=== PATIENT | female | born 1950 | race African-American/Black ===

== ENCOUNTER 2021-01-24 22:40 | Observation (INO) | payer MEDICARE, OTHER ==
[~2021-01-24] VITALS: Ht 162.6 cm; Wt 58.8 kg
[~2021-01-24 22:40] MED LIST: ANAS1TAB47 PO; ASPI81TA50 PO; EZET10TA20 PO; FELO10TA4 PO; INDA1.25 PO; LORA0.5T PO; OXYC1TAB15 PO; POTA20TA4 PO; RIVA20TA2 PO
[2021-01-25 02:15] VITALS: BP 132/67
--- NOTE | 2021-01-25 02:30 | NUR ---
Pt was a DA from [place], admitted with LE weakness, no current c/o pain. Pt is A/Ox4, but has a severe aphasia r/t a prior CVA May of 2020. Pt is up with standby assist, transferred with her own walking stick. BRADEN/SB on telemetry, RA, other VS stable and tolerating well. NIH was performed at admission, pt scored a 3. H/P and med rec completed, bed in low/locked position, call light within reach. Will continue to monitor pt for status changes.
[2021-01-25] MEDS ORDERED: FERR325T14 PO (03:21)
[2021-01-25] MEDS ORDERED: ATOR10TA60 PO (03:22)
[2021-01-25] MEDS ORDERED: ESCITALOPRAM OX10 MG PO (03:23)
[2021-01-25] MEDS ORDERED: 0.9 % SODIUM CHLORIDE 10 ML DISP.SYRIN. IV PRN ×2 (04:45→13:45)
[2021-01-25 07:09] VITALS: BP 157/74
[2021-01-25 07:46] LABS: BASO % 0 % (0-3); EOS # 0.2 x10^3/uL (0.0-0.7); EOS % 4 % (0-3); HEMATOCRIT 35.2 % (36.0-47.0); HEMOGLOBIN 11.5 g/dL (12.0-15.5); LYMPH # 1.4 x10^3/uL (1.0-4.8); LYMPH % 23 % (24-48); MEAN CORPUSCULAR HEMOGLOBIN 27 pg (25-35); MEAN CORPUSCULAR HGB CONC 33 g/dL (31-37); MEAN CORPUSCULAR VOLUME 84 fL (79-100); MONO # 0.6 x10^3/uL (0.0-1.1); MONO % 9 % (0-9); NEUT # 3.9 x10^3/uL (1.8-7.7); NEUT % 64 % (31-73); PLATELET COUNT 197 x10^3/uL (140-400); RED BLOOD COUNT 4.21 x10^6/uL (3.50-5.40); RED CELL DISTRIBUTION WIDTH 27.8 % (11.5-14.5); WHITE BLOOD COUNT 6.1 x10^3/uL (4.0-11.0)
[2021-01-25 08:06] LABS: CALCIUM 9.2 mg/dL (8.5-10.1); CREATININE 0.8 mg/dL (0.6-1.0); GFR 86.3; POTASSIUM 3.6 mmol/L (3.5-5.1)
--- NOTE | 2021-01-25 08:34 | PDOC1 ---
History and Physical Date of Admission Date of Admission DATE: 01/25/21 TIME: 08:31 Identification/Chief Complaint Chief Complaint left leg weakness per ER History of Present Illness History of Present Illness 70 YR OLD FEMALE SEEN AT [facility] went to the emergency room for headache and nausea at the direction of her primary care physician, Dr. Cerda. The emergency room physician STATED patient was complaining of left leg weakness, but she denies any. 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 on previous mri l/s Past Medical History Past Medical History PAST MEDICAL AND SURGICAL HISTORY: Lumpectomy and breast biopsy successful lumpectomy and sentinel lymph node procedure for her favorable histology left-sided breast cancer. Her margins are negative. 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 She had a right ankle and foot fracture, which have been very difficult to resolve and she still requires a walker. She has some anxiety. osteoarthritis. . She has peripheral vascular disease and hypertension. severe aphasia r/t a prior CVA May of 2020. ALLERGIES: STATINS CAUSE HER TO HAVE MYALGIA. MEDICATIONS: Medications are detailed in full in the electronic medical record. FAMILY HISTORY: Detailed family history is negative for breast or ovarian carcinoma. SOCIAL HISTORY: She is for 50 years. She has smoked for 40 years She has had significant trauma psychologically much of this involves around her foot pain, She has two daughters. Pulmonary: COPD CENTRAL NERVOUS SYSTEM: CVA Heme/Onc: No pertinent hx Hepatobiliary: No pertinent hx Musculoskeletal: Osteoarthritis Infectious disease: No pertinent hx Renal/: No pertinent hx Family History Family History: Hypertension Social History Smoke: Quit ALCOHOL: none Drugs: None Current Medications Current Medications Current Medications Sodium Chloride (Normal Saline Flush) 3 ml PRN DAILY PRN IV AFTER MEDS AND BLOOD DRAWS; Start 01/25/21 at 04:45 Active Scripts Active Reported Escitalopram Oxalate 10 Mg Tablet 10 Mg PO DAILY Atorvastatin Calcium 10 Mg Tablet 10 Mg PO HS Ferrous Sulfate 325 Mg Tablet 325 Mg PO DAILY Potassium Chloride (Potassium Chloride) 20 Meq Tablet.er 20 Meq PO TID Xarelto (Rivaroxaban) 20 Mg Tablet 20 Mg PO DAILY Indapamide 1.25 Mg Tablet 1.25 Mg PO DAILY Felodipine Er (Felodipine) 10 Mg Tab.er.24h 10 Mg PO DAILY Zetia (Ezetimibe) 10 Mg Tablet 10 Mg PO DAILY Arimidex (Anastrozole) 1 Mg Tablet 1 Mg PO DAILY Allergies Allergies: Coded Allergies: Flybacb-Nwm-Yuy Reductase Inhibitor (Verified Adverse Reaction, Intermediate, myalgia, 09/15/18) ROS General: YES: Fatigue; No: Chills, Night Sweats, Malaise, Appetite, Other PSYCHOLOGICAL ROS: No: Anxiety, Behavioral Disorder, Concentration difficultie, Decreased libido, Depression, Disorientation, Hallucinations, Hostility, Irritablity, Memory difficulties, Mood Swings, Obsessive thoughts, Physical abuse, Sexual abuse, Sleep disturbances, Suicidal ideation, Other Eyes: No Blurry vision, No Decreased vision, No Double vision, No Dry eyes, No Excessive tearing, No Eye Pain, No Itchy Eyes, No Loss of vision, No Photophobia, No Scotomata, No Uses contacts, No Uses glasses, No Other HEENT: No: Heacaches, Visual Changes, Hearing change, Nasal congestion, Nasal discharge, Oral lesions, Sinus pain, Sore Throat, Epistaxis, Sneezing, Snoring, Tinnitus, Vertigo, Vocal changes, Other Hematological and Lymphatic: YES: Blood Clots; No: Bleeding Problems, Blood Transfusions, Brusing, Night Sweats, Pallor, Swollen Lymph Nodes, Other ENDOCRINE: No: Breast Changes, Galactorrhea, Hair Pattern Changes, Hot Flashes, Malaise/lethargy, Mood Swings, Palpitations, Polydipsia/polyuria, Skin Changes, Temperature Intolerance, Unexpected Weight Changes, Other Respiratory: No: Cough, Hemoptysis, Orthopnea, Pleuritic Pain, Shortness of breath, SOB with excertion, Sputum Changes, Stridor, Tachypnea, Wheezing, Other Cardiovascular: No Chest Pain, No Palpitations, No Orthopnea, No Paroxysmal Noc. Dyspnea, No Edema, No Lt Headedness, No Other Gastrointestinal: No Nausea, No Vomiting, No Abdominal Pain, No Diarrhea, No Constipation, No Melena, No Hematochezia, No Other Genitourinary: No Dysuria, No Frequency, No Incontinence, No Hematuria, No Retention, No Discharge, No Urgency, No Pain, No Flank Pain, No Other, No , No , No , No , No , No , No Musculoskeletal: Yes Gait Disturbance, Yes Joint Stiffness, Yes Muscular Weakness Neurological: Yes Gait Disturbance Skin: No Dry Skin, No Eczema, No Hair Changes, No Lumps, No Mole Changes, No Mottling, No Nail Changes, No Pruritus, No Rash, No Skin Lesion Changes, No Other, No Acne Physical Exam General: Alert, Oriented X3, Cooperative, No acute distress HEENT: Atraumatic, PERRLA, EOMI, Mucous membr. moist/pink Lungs: Clear to auscultation, Normal air movement Heart: S1S2, RRR, no thrills, no gallops Breasts: Not examined Abdomen: Normal bowel sounds, Soft, No tenderness Rectal Exam: not examined PELVIC: Examination not indicated Extremities: No clubbing, No cyanosis, No edema Skin: No significant lesion Neuro: Normal speech, Strength at 5/5 X4 ext, Sensation intact, Cranial nerves 3-12 NL Psych/Mental Status: Mental status NL, Mood NL Vitals Vitals Vital Signs Date Time Temp Pulse Resp B/P (MAP) Pulse Ox O2 Delivery O2 Flow Rate FiO2 01/25/21 07:09 97.9 65 19 157/74 (101) 99 Room Air 97.9 Labs Labs Laboratory Tests Test 01/25/21 06:40 White Blood Count 6.1 x10^3/uL (4.0-11.0) Red Blood Count 4.21 x10^6/uL (3.50-5.40) Hemoglobin 11.5 g/dL (12.0-15.5) Hematocrit 35.2 % (36.0-47.0) Mean Corpuscular Volume 84 fL (79-100) Mean Corpuscular Hemoglobin 27 pg (25-35) Mean Corpuscular Hemoglobin Concent 33 g/dL (31-37) Red Cell Distribution Width 27.8 % (11.5-14.5) Platelet Count 197 x10^3/uL (140-400) Neutrophils (%) (Auto) 64 % (31-73) Lymphocytes (%) (Auto) 23 % (24-48) Monocytes (%) (Auto) 9 % (0-9) Eosinophils (%) (Auto) 4 % (0-3) Basophils (%) (Auto) 0 % (0-3) Neutrophils # (Auto) 3.9 x10^3/uL (1.8-7.7) Lymphocytes # (Auto) 1.4 x10^3/uL (1.0-4.8) Monocytes # (Auto) 0.6 x10^3/uL (0.0-1.1) Eosinophils # (Auto) 0.2 x10^3/uL (0.0-0.7) Basophils # (Auto) 0.0 x10^3/uL (0.0-0.2) Prothrombin Time 15.0 SEC (11.7-14.0) Prothromb Time International Ratio 1.2 (0.8-1.1) Sodium Level 145 mmol/L (136-145) Potassium Level 3.6 mmol/L (3.5-5.1) Chloride Level 107 mmol/L (98-107) Carbon Dioxide Level 31 mmol/L (21-32) Anion Gap 7 (6-14) Blood Urea Nitrogen 15 mg/dL (7-20) Creatinine 0.8 mg/dL (0.6-1.0) Estimated GFR (Cockcroft-Gault) 86.3 Glucose Level 73 mg/dL (70-99) Calcium Level 9.2 mg/dL (8.5-10.1) Magnesium Level 2.0 mg/dL (1.8-2.4) Laboratory Tests Test 01/25/21 06:40 White Blood Count 6.1 x10^3/uL (4.0-11.0) Red Blood Count 4.21 x10^6/uL (3.50-5.40) Hemoglobin 11.5 g/dL (12.0-15.5) Hematocrit 35.2 % (36.0-47.0) Mean Corpuscular Volume 84 fL (79-100) Mean Corpuscular Hemoglobin 27 pg (25-35) Mean Corpuscular Hemoglobin Concent 33 g/dL (31-37) Red Cell Distribution Width 27.8 % (11.5-14.5) Platelet Count 197 x10^3/uL (140-400) Neutrophils (%) (Auto) 64 % (31-73) Lymphocytes (%) (Auto) 23 % (24-48) Monocytes (%) (Auto) 9 % (0-9) Eosinophils (%) (Auto) 4 % (0-3) Basophils (%) (Auto) 0 % (0-3) Neutrophils # (Auto) 3.9 x10^3/uL (1.8-7.7) Lymphocytes # (Auto) 1.4 x10^3/uL (1.0-4.8) Monocytes # (Auto) 0.6 x10^3/uL (0.0-1.1) Eosinophils # (Auto) 0.2 x10^3/uL (0.0-0.7) Basophils # (Auto) 0.0 x10^3/uL (0.0-0.2) Prothrombin Time 15.0 SEC (11.7-14.0) Prothromb Time International Ratio 1.2 (0.8-1.1) Sodium Level 145 mmol/L (136-145) Potassium Level 3.6 mmol/L (3.5-5.1) Chloride Level 107 mmol/L (98-107) Carbon Dioxide Level 31 mmol/L (21-32) Anion Gap 7 (6-14) Blood Urea Nitrogen 15 mg/dL (7-20) Creatinine 0.8 mg/dL (0.6-1.0) Estimated GFR (Cockcroft-Gault) 86.3 Glucose Level 73 mg/dL (70-99) Calcium Level 9.2 mg/dL (8.5-10.1) Magnesium Level 2.0 mg/dL (1.8-2.4) Images Images PATIENT: DEE RAE AACCOUNT: [id number] : 1950 [facility]: [facility] AGE: 70 SEX: F EXAM STATUS: ADM IN ORD. PHYSICIAN: LIANG GARDUNO MD REASON: Weakness, abnormal head CT (entirely explained by known history of stroke) PROCEDURE: BRAIN W/O CONTRAST MRI BRAIN WO Date: 01/25/2021 4:15 PM Indication: Weakness, abnormal head CT (entirely explained by known history of stroke) Comparison: CT 01/24/2021. Technique: Multiplanar multisequence MRI of the brain was performed without intravenous contrast using the standard protocol. Findings: No acute infarct. No acute hemorrhage. The ventricles are normal in size and configuration without hydrocephalus. Mild scattered FLAIR hyperintensities in the subcortical and periventricular deep white matter, a nonspecific finding, most commonly seen with chronic small vessel ischemic disease. Moderate-sized area of left parietal encephalomalacia. The scalp and calvarium are normal. The pituitary and sella are normal. No Chiari malformation. Mild incompletely characterized degenerative spondylosis of the visualized upper cervical spine. The visualized orbits and globes are normal. The visualized paranasal sinuses are clear. The mastoid air cells are clear. Normal flow voids within the vertebral, basilar, and internal carotid arteries indicating patency. IMPRESSION: 1. No acute infarct, acute hemorrhage, mass, or hydrocephalus. 2. Moderate-sized area of left parietal encephalomalacia. 3. Mild chronic small vessel ischemic disease. Electronically signed by: Ro Farrell MD (01/25/2021 5:10 PM) [id number] DICTATED and SIGNED BY: RO FARRELL MD DATE: 01/25/21 [id number] Transfer Assistance Required * Independent Transfer Type * Stand-Step Transfer Assistive Device * Cane Ambulation Assistive Device * Cane Ambulation Distance * >200 FT Ambulation Comments * no loss of balance. Pt does have a little ataxia that pt states is normal. Pt states has been using cane for the last 10 years. Also had a stroke in 2020. pt states is at baseline. No loss of balance turning, backing, and reaching to the floor. Stairs Assistance Required * Independent Number of Stairs * 5-9 Stairs Assistive Device * Cane * Rail on Right Clinical Presentation * Stable Evaluation Complexity Level * Low Complexity Pt/caregiver agrees with plan of care/goals * Yes Patient condition at conclusion of therapy * Pt in chair * Call light in reach * Phone in reach * PtIn no apparent distress * Pt denies further needs No Further Skilled P.T. Intervention Required * Eval only-No PT Needs Discharge Recommendations * Home independent Discharge Recommendation Comments * owns cane and walker. PROCEDURE: MRI lumbar spine without contrast. CLINICAL INDICATIONS: Low back pain, right knee pain since 09/29/2014. TECHNIQUE: Sagittal and axial T1 and T2 and sagittal STIR images were acquired of the lumbar spine. CONTRAST: None. COMPARISON: None available at this time due to technical problems in retrieval study. FINDINGS: Lumbar vertebral body stature and AP alignment are preserved. There is minimal degenerative disc disease L4-5 and L5-S1. There is no significant focal marrow edema. There are likely Tarlov cysts of the sacrum, largest on the left at S1-S2 up to 1.8 centimeters, other smaller foci present. Conus terminates normally L1-2. There is no significant focal marrow edema. L2-L3: Neural foramina and the spinal canal are adequate. L3-L4: Neural foramina and spinal canal are adequate. There is minimal facet degenerative change greater on the right. L4-5: There is a very minimal posterior bulge. Spinal canal and left neural foramen are adequate. There is mild narrowing of the right neural foramen. There is minimal facet degenerative change. L5-S1: Spinal canal and the neural foramina are adequate. IMPRESSION: 1. There is minimal degenerative disc disease L4-5 and L5-S1. There is no significant lumbar spinal stenosis. 2. There is mild narrowing of the right L4-5 neural foramen. 3. There are Tarlov cysts of the sacrum, largest on the left at S1-S2. Electronically signed by: Farhad Mojica MD (Nov 29, 2014 14:32:14) DICTATED and SIGNED BY: RO MOJICA MD DATE: 11/29/14 1432 VTE Prophylaxis Ordered VTE Prophylaxis Devices: No VTE Pharmacological Prophylaxi: Yes Assessment/Plan Assessment/Plan IMPRESSION Left leg weakness, NEW onset with development of encephalomalacia in the left posterior frontal lobe compared to the study of May of last year. Moderate-sized area of left parietal encephalomalacia. hx cva REMOTE TOBACCO ABUSE COPD aphasia, improved ductal BREAST carcinoma in situ,post lumpectomy OSTEOARTHRITIS peripheral vascular disease hypertension. severe aphasia r/t a prior CVA May of 2020. 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 plan admit MRI HEAD HOME MEDS PT/OT/ST dvt prophylaxis arterial doppler both legs Justifications for Admission Other Justification TEREZA SANTOS MD Jan 25, 2021 08:34
[2021-01-25 08:50] LABS: ANISOCYTOSIS PRESENT; PLT ESTIMATE ADEQUATE (ADEQUATE)
--- NOTE | 2021-01-25 09:08 | PDOC2 ---
NEUROLOGY CONSULT Date of Service DOS: DATE: 01/25/21 TIME: 09:01 Reason for Consult Reason for Consult: Possible stroke Referring Physician Referring Physician: Dr. Rasheed PCP: Dr. Cerda Identification/Chief Complaint Chief Complaint Dr. Rasheed Source Source: Chart review, Patient History of Present Illness History of Present Illness The patient is a 70-year-old right-handed female sent down from [facility] because the CT shows development of encephalomalacia in the left posterior frontal lobe compared to the study of May of last year. She was admitted to [facility] in May of last year with left frontal stroke syndrome, aphasia. She had a CT angiogram which showed occlusion of distal M1 segment. I do not see that any attempt was made for neuro-intervention at that time. Patient was sent out on aspirin. Patient says that she went to the emergency room for headache and nausea at the direction of her primary care physician, Dr. Cerda. The emergency room physician records that the patient was complaining of left leg weakness, but she denies any. She indeed does have aphasia from her stroke and has difficulty communicating. She tells me that she has had trouble walking for over 10 years and has been using a walker or cane all of that time. Past Medical History Cardiovascular: HTN Pulmonary: COPD CENTRAL NERVOUS SYSTEM: CVA Heme/Onc: Cancer (Breast) Psych: Anxiety, Depression Musculoskeletal: Osteoarthritis, Other (Right foot and ankle fractures) Past Surgical History Past Surgical History: Other (Left breast lumpectomy) Family History Family History: No pertinent hx Social History Social History , ex-smoker, no alcohol Current Medications Current Medications Current Medications Sodium Chloride (Normal Saline Flush) 3 ml PRN DAILY PRN IV AFTER MEDS AND BLOOD DRAWS; Start 01/25/21 at 04:45 Active Scripts Active Reported Escitalopram Oxalate 10 Mg Tablet 10 Mg PO DAILY Atorvastatin Calcium 10 Mg Tablet 10 Mg PO HS Ferrous Sulfate 325 Mg Tablet 325 Mg PO DAILY Potassium Chloride (Potassium Chloride) 20 Meq Tablet.er 20 Meq PO TID Xarelto (Rivaroxaban) 20 Mg Tablet 20 Mg PO DAILY Indapamide 1.25 Mg Tablet 1.25 Mg PO DAILY Felodipine Er (Felodipine) 10 Mg Tab.er.24h 10 Mg PO DAILY Zetia (Ezetimibe) 10 Mg Tablet 10 Mg PO DAILY Arimidex (Anastrozole) 1 Mg Tablet 1 Mg PO DAILY Allergies Allergies: Coded Allergies: Lnrpeao-Goq-[id number] Reductase Inhibitor (Verified Adverse Reaction, Intermediate, myalgia, 09/15/18) ROS Review of System Negative for fever, chills, weight loss, shortness of breath, chest pain, indigestion, hematochezia, melena, and dysuria. Full 14-point review of systems is negative. Physical Exam Physical Examination General: Well-developed, well-nourished black female in no acute distress HEENT: Normocephalic andatraumatic. emporal arteriespulsatile and nontender. Neck: Supple without bruit, no meningismus Musculoskeletal: Stability:see neurologic. Gait exam:see neurologic. Tone:see neurologic.Strength:see neurologic. Neurological: Mental Status:orientation, memory, attention span/concentration, language, fund of knowledge normal: Expressive aphasia, given time, she is able to get across her history, answer questions, follow commands. Cranial Nerves:Pupils equal and reactive to light, extraocular movements areintact, visual viera are full to confrontation. Facial sensation is normal. There is no facial asymmetry. Vestibulo-ocular reflex is intact. Palate elevates and tongue protrudes in midline. All other cranial related problems are negative except as mentioned before.Reflexes:2+ and symmetric with flexor plantar responses. Motor:5/5 strength with normal tone and bulk. Coordination:Finger-nose finger and ccgz-[id number] testing are normal. Rapid alternating movements and fine finger movements are intact. Gait:Arthritic, wide-based. Sensory:Normal pinprick, vibration, light touch, proprioception. Vitals VITALS Vital Signs Date Time Temp Pulse Resp B/P (MAP) Pulse Ox O2 Delivery O2 Flow Rate FiO2 01/25/21 07:09 97.9 65 19 157/74 (101) 99 Room Air 97.9 Labs Labs Laboratory Tests Test 01/25/21 06:40 White Blood Count 6.1 x10^3/uL (4.0-11.0) Red Blood Count 4.21 x10^6/uL (3.50-5.40) Hemoglobin 11.5 g/dL (12.0-15.5) Hematocrit 35.2 % (36.0-47.0) Mean Corpuscular Volume 84 fL (79-100) Mean Corpuscular Hemoglobin 27 pg (25-35) Mean Corpuscular Hemoglobin Concent 33 g/dL (31-37) Red Cell Distribution Width 27.8 % (11.5-14.5) Platelet Count 197 x10^3/uL (140-400) Neutrophils (%) (Auto) 64 % (31-73) Lymphocytes (%) (Auto) 23 % (24-48) Monocytes (%) (Auto) 9 % (0-9) Eosinophils (%) (Auto) 4 % (0-3) Basophils (%) (Auto) 0 % (0-3) Neutrophils # (Auto) 3.9 x10^3/uL (1.8-7.7) Lymphocytes # (Auto) 1.4 x10^3/uL (1.0-4.8) Monocytes # (Auto) 0.6 x10^3/uL (0.0-1.1) Eosinophils # (Auto) 0.2 x10^3/uL (0.0-0.7) Basophils # (Auto) 0.0 x10^3/uL (0.0-0.2) Platelet Estimate Adequate (ADEQUATE) Anisocytosis Present Prothrombin Time 15.0 SEC (11.7-14.0) Prothromb Time International Ratio 1.2 (0.8-1.1) Sodium Level 145 mmol/L (136-145) Potassium Level 3.6 mmol/L (3.5-5.1) Chloride Level 107 mmol/L (98-107) Carbon Dioxide Level 31 mmol/L (21-32) Anion Gap 7 (6-14) Blood Urea Nitrogen 15 mg/dL (7-20) Creatinine 0.8 mg/dL (0.6-1.0) Estimated GFR (Cockcroft-Gault) 86.3 Glucose Level 73 mg/dL (70-99) Calcium Level 9.2 mg/dL (8.5-10.1) Magnesium Level 2.0 mg/dL (1.8-2.4) Laboratory Tests Test 01/25/21 06:40 White Blood Count 6.1 x10^3/uL (4.0-11.0) Red Blood Count 4.21 x10^6/uL (3.50-5.40) Hemoglobin 11.5 g/dL (12.0-15.5) Hematocrit 35.2 % (36.0-47.0) Mean Corpuscular Volume 84 fL (79-100) Mean Corpuscular Hemoglobin 27 pg (25-35) Mean Corpuscular Hemoglobin Concent 33 g/dL (31-37) Red Cell Distribution Width 27.8 % (11.5-14.5) Platelet Count 197 x10^3/uL (140-400) Neutrophils (%) (Auto) 64 % (31-73) Lymphocytes (%) (Auto) 23 % (24-48) Monocytes (%) (Auto) 9 % (0-9) Eosinophils (%) (Auto) 4 % (0-3) Basophils (%) (Auto) 0 % (0-3) Neutrophils # (Auto) 3.9 x10^3/uL (1.8-7.7) Lymphocytes # (Auto) 1.4 x10^3/uL (1.0-4.8) Monocytes # (Auto) 0.6 x10^3/uL (0.0-1.1) Eosinophils # (Auto) 0.2 x10^3/uL (0.0-0.7) Basophils # (Auto) 0.0 x10^3/uL (0.0-0.2) Platelet Estimate Adequate (ADEQUATE) Anisocytosis Present Prothrombin Time 15.0 SEC (11.7-14.0) Prothromb Time International Ratio 1.2 (0.8-1.1) Sodium Level 145 mmol/L (136-145) Potassium Level 3.6 mmol/L (3.5-5.1) Chloride Level 107 mmol/L (98-107) Carbon Dioxide Level 31 mmol/L (21-32) Anion Gap 7 (6-14) Blood Urea Nitrogen 15 mg/dL (7-20) Creatinine 0.8 mg/dL (0.6-1.0) Estimated GFR (Cockcroft-Gault) 86.3 Glucose Level 73 mg/dL (70-99) Calcium Level 9.2 mg/dL (8.5-10.1) Magnesium Level 2.0 mg/dL (1.8-2.4) Images Images CT HEAD/BRAIN WO (CT HEAD WITHOUT IV CONTRAST), 01/24/2021, [facility] CLINICAL HISTORY: Weakness, headache TECHNIQUE: Serial axial images without IV contrast were obtained from the vertex to the foramen magnum. CT Dose Reduction Employed: One or more of the following individualized dose reduction techniques were utilized for this examination: 1. Automated exposure control 2. Adjustment of the mA and/or kV according to patient size 3. Use of iterative reconstruction technique. COMPARISON: CT head 06/02/2020 FINDINGS: Acute Change: No evidence of an acute infarct or other acute parenchymal process. Hemorrhage: No evidence of acute intracranial hemorrhage. Mass Lesion/Mass Effect: No evidence of intracranial mass or extraaxial fluid collection. No significant mass effect. Chronic Change: Interval development of bandlike encephalomalacia in the posterior left frontal lobe at site of previously noted infarct. Atherosclerotic calcification of the bilateral carotid siphons. Parenchyma: Mild generalized volume loss. Parenchyma otherwise within normal limits for age. Ventricles: Ventricular enlargement concordant with degree of parenchymal volume loss. Paranasal Sinuses and Skull Base: Visualized paranasal sinuses clear. Visualized skull base and soft tissues unremarkable. IMPRESSION: No evidence of acute intracranial abnormality. Development of encephalomalacia at site of prior infarct in the posterior left frontal lobe. CT Angiogram of the Head and Neck, 06/02/20 INDICATION: Reason: stroke, SLURRED SPEECH, CONFUSION / Spl. Instructions: / History: TECHNIQUE: CT images were obtained through the head per standard CTA protocol. Multiplanar and 3D reformatted images were generated from the CT dataset on an independent workstation. All CT scans performed at this facility utilize dose optimization techniques as appropriate to the exam, including the following: Automated exposure control and adjustment of the mA and/or KV according to patient size (this includes techniques or standardized protocols for targeted exams where dose is indication/reason for exam). IV CONTRAST: Administered COMPARISON: None FINDINGS: CTA HEAD: No high-grade large vessel stenosis, proximal or branch vessel occlusion, aneurysm, or vascular malformation. Atherosclerotic plaque in the right cavernous carotid artery is present, resulting in no high-grade stenosis. There is however a paucity of perfused smaller branch vessels in the left parietal region where subtle loss of agarwal-white differentiation is apparent. ANTERIOR CIRCULATION: Anterior and middle cerebral arteries are widely patent. ANTERIOR COMMUNICATING ARTERY: Patent. POSTERIOR COMMUNICATING ARTERIES: Diminutive and not well seen. POSTERIOR CIRCULATION: Vertebral and basilar arteries are widely patent. Bilateral posterior inferior cerebellar arteries (PICAs), anterior inferior cerebellar arteries (AICAs), and superior cerebellar arteries (SCAs) are visualized and patent. OTHER: No abnormal brain parenchymal enhancement. The paranasal sinuses, mastoid air cells, and tympanic cavities are clear. NECK CTA: AORTA: 2 vessel configuration of arch. No dissection or acute aortic injury. Ectasia of the ascending thoracic aorta to 4.1 cm is present. No hemodynamically significant great vessel origin stenosis. RIGHT CAROTID: Common and internal carotid arteries are widely patent, without evidence of flow limiting stenosis or dissection. LEFT CAROTID: Common and internal carotid arteries are widely patent, without evidence of flow limiting stenosis or dissection. VERTEBRAL ARTERIES: Codominant. No evidence of dissection or flow limiting stenosis. SUBCLAVIAN ARTERIES:Subclavian arteries are patent without stenosis. SOFT TISSUES: Soft tissues are unremarkable. Lung apices show panlobular emphysema affecting the upper lobes the greatest extent. Coronary calcifications are incidentally noted. Where applicable, evaluation of ICA stenosis was performed using NASCET criteria, where the site of greatest stenosis is compared to the diameter of the ICA distal to the carotid bulb. IMPRESSION: 1. Findings suspicious for distal MCA branch vessel occlusion with paucity of perfusing vessels in the left parietal region and associated loss of agarwal-white differentiation, compatible with an evolving acute to subacute infarct. 2. No significant stenosis in the cervical great vessels with ectasia of the ascending thoracic aorta 4.1 cm and bovine arch configuration noted. Assessment/Plan Assessment/Plan Impression: Tension type headache She denies any acute lower extremity weakness, she has chronic gait disorder for 10 years Expected left frontal encephalomalacia from the stroke last May, no evidence of new stroke. In particular, there is no lower extremity weakness whatsoever. Recommendations: MRI of the brain Rehabilitation screening Further stroke work-up only if the MRI shows an acute new stroke. Otherwise she can go home later today. Thank you for letting me help with the patient's care. LIANG GARDUNO MD Jan 25, 2021 09:08
[2021-01-25 10:42] VITALS: BP 120/63
[2021-01-25] MEDS: INDAPAMIDE 2.5 MG TABLET PO SCH (12:00)
[2021-01-25] MEDS: RIVAROXABAN 10 MG TABLET. PO SCH (13:45)
[2021-01-25] MEDS ORDERED: ONDANSETRON PF 4 MG/2 ML VIAL. IV PRN (13:45)
[2021-01-25] MEDS ORDERED: ACETAMINOPHEN 325 MG TABLET. PO PRN (13:45)
[2021-01-25] MEDS ORDERED: DOCUSATE SODIUM 100 MG CAPSULE. PO PRN (13:45)
[2021-01-25] MEDS ORDERED: IPRATRPIUM/ALBUTEROL 0.5/2.5MG 3 ML NEBU. NEB SCH (13:45)
[2021-01-25] MEDS ORDERED: LORazepam 0.5 MG TABLET PO PRN (13:45)
[2021-01-25] MEDS ORDERED: MAG HYDROX/ALUMINUM HYD/SIMETH 30 ML ORAL.SUSP PO PRN (13:45)
[2021-01-25] MEDS: CITALOPRAM 20 MG TABLET. PO SCH (13:45)
[2021-01-25] MEDS ORDERED: guaiFENesin ORAL 200 MG/10 ML LIQUID. PO PRN (13:45)
[2021-01-25] MEDS: EZETIMIBE 10 MG TABLET. PO SCH (13:45)
[2021-01-25] MEDS: amLODIPine BESYLATE 10 MG TABLET PO SCH (13:45)
[2021-01-25] MEDS ORDERED: SODIUM PHOSPHATES 19/7GM 133 ML ENEMA. PR PRN (13:45)
[2021-01-25] MEDS: FERROUS SULFATE 325 MG TABLET. PO SCH (13:46)
[2021-01-25] MEDS: ANASTROZOLE 1 MG TABLET PO SCH (13:50)
[2021-01-25] MEDS: POTASSIUM CHLORIDE 20 MEQ TABLET.ER. PO SCH ×2 (14:03→23:01)
[2021-01-25 14:05] VITALS: BP 138/64
--- NOTE | 2021-01-25 14:35 | NUR ---
SS following for discharge planning. SS reviewed pt chart and discussed with pt RN. Pt is from home with spouse and is currently on room air. PT/OT ordered. PT recommended home independent. Pt on PO diet. MRI today. SS will continue to follow for discharge planning.
--- NOTE | 2021-01-25 17:13 | RAD ---
MRI BRAIN WO Date: 01/25/2021 4:15 PM Indication: Weakness, abnormal head CT (entirely explained by known history of stroke) Comparison: CT 01/24/2021. Technique: Multiplanar multisequence MRI of the brain was performed without intravenous contrast usin g the standard protocol. Findings: No acute infarct. No acute hemorrhage. The ventricles are normal in size and configuration without hy drocephalus. Mild scattered FLAIR hyperintensities in the subcortical and periventricular deep white matter, a non specific finding, most commonly seen with chronic small vessel ischemic disease. Moderate-sized area of left parietal encephalomalacia. The scalp and calvarium are normal. The pituitary and sella are normal. No Chiari malformation. Mild incompletely characterized degenerative spondylosis of the visualized upper cervical spine. The visualized orbits and globes are normal. The visualized paranasal sinuses are clear. The mastoid air cells are clear. Normal flow voids within the vertebral, basilar, and internal carotid arteries indicating patency. IMPRESSION: 1. No acute infarct, acute hemorrhage, mass, or hydrocephalus. 2. Moderate-sized area of left parietal encephalomalacia. 3. Mild chronic small vessel ischemic disease. Electronically signed by: Nitish Farrell MD (01/25/2021 5:10 PM) [id number]
[2021-01-25 19:14] VITALS: BP 125/59
[2021-01-25] MEDS ORDERED: ATORVASTATIN CALCIUM 10 MG TABLET. PO SCH (21:00)
[2021-01-25 21:12] LABS: BILIRUBIN,URINE NEGATIVE (NEG); CLARITY,URINE CLEAR; COLOR,URINE YELLOW; NITRITE,URINE NEGATIVE (NEG); PROTEIN,URINE NEGATIVE (NEG-TRACE); UROBILINOGEN,URINE 0.2 mg/dL (0.2 mg/dL)
[2021-01-25 21:21] LABS: BACTERIA,URINE 0 /HPF (0-FEW)
[2021-01-25 23:01] VITALS: BP 156/67
--- NOTE | 2021-01-25 23:13 | RAD ---
Bilateral lower extremity arterial duplex Doppler ultrasound HISTORY: Peripheral vascular disease. FINDINGS: Right leg demonstrates calcified plaquing without high-grade stenosis, thrombus or large vessel occlu nia. The peroneal artery is not visualized may be occluded. There are triphasic waveforms of the fem oral and popliteal arteries and monophasic waveforms of the calf arteries. Individual flow velocities are described below. Common femoral artery: 123 cm/s. Profunda femoral artery: 100 cm/s. Superficial femoral artery: 113 cm/s proximal, 73 cm/s mid segment, 118 cm/s distal. Popliteal artery: 64 cm/s. Posterior tibial artery: 20 cm/s proximal, 72 cm/s distal. Peroneal artery: Not visualized. Anterior tibial artery: 39 cm/s. Dorsalis pedis artery: 31 cm/s. Left leg demonstrates calcified plaquing without high-grade stenosis, thrombus or occlusion. There ar e triphasic waveforms of the femoral and popliteal arteries and calf arteries. Individual flow veloci ties are described below. Common femoral artery: 146 cm/s. Profunda femoral artery: 44 cm/s. Superficial femoral artery: 89 cm/s proximal, 120 cm/s mid segment, 85 cm/s distal. Popliteal artery: 106 cm/s. Posterior tibial artery: 65 cm/s proximal, 54 cm/s distal. Peroneal artery: 45 cm/s. Anterior tibial artery: 73 cm/s. Dorsalis pedis artery: 52 cm/s. IMPRESSION: 1. The right peroneal artery is not visualized may be excluded. 2. The right calf arteries demonstrate monophasic waveforms indicating peripheral small vessel diseas e. Electronically signed by: David Beasley MD (01/25/2021 11:11 PM) [facility]
[2021-01-26 03:14] VITALS: BP 137/68
[2021-01-26 07:00] VITALS: BP 148/70
--- NOTE | 2021-01-26 08:14 | PDOC ---
PROGRESS NOTES Date of Service: DATE: 01/26/21 TIME: 08:14 Chief Complaint Chief Complaint TE Prophylaxis Ordered VTE Prophylaxis Devices: No VTE Pharmacological Prophylaxi: Yes Assessment/Plan Assessment/Plan IMPRESSION Left leg weakness, NEW onset with development of encephalomalacia in the left posterior frontal lobe compared to the study of May of last year. Moderate-sized area of left parietal encephalomalacia. hx cva REMOTE TOBACCO ABUSE COPD aphasia, improved ductal BREAST carcinoma in situ,post lumpectomy OSTEOARTHRITIS peripheral vascular disease hypertension. severe aphasia r/t a prior CVA May of 2020. 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 The right peroneal artery is not visualized may be excluded. plan admit MRI HEAD HOME MEDS PT/OT/ST dvt prophylaxis arterial doppler both legs REVIEWED consult vascular surgery 01/26 RIGHT FOOT ACHES AT TIMES DOPPLER REVIEWED D/W RN Justifications for Admission Other Justification History of Present Illness History of Present Illness dentification/Chief Complaint Chief Complaint left leg weakness per ER DR History of Present Illness History of Present Illness 70 YR OLD FEMALE SEEN AT [facility] went to the emergency room for headache and nausea at the direction of her primary care physician, Dr. Cerda. The emergency room physician STATED patient was complaining of left leg weakness, but she denies any. 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 on previous mri l/s Past Medical History Past Medical History PAST MEDICAL AND SURGICAL HISTORY: Lumpectomy and breast biopsy successful lumpectomy and sentinel lymph node procedure for her favorable histology left-sided breast cancer. Her margins are negative. 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 She had a right ankle and foot fracture, which have been very difficult to resolve and she still requires a walker. She has some anxiety. osteoarthritis. . She has peripheral vascular disease and hypertension. severe aphasia r/t a prior CVA May of 2020. ALLERGIES: STATINS CAUSE HER TO HAVE MYALGIA. MEDICATIONS: Medications are detailed in full in the electronic medical record. FAMILY HISTORY: Detailed family history is negative for breast or ovarian carcinoma. SOCIAL HISTORY: She is for 50 years. She has smoked for 40 years She has had significant trauma psychologically much of this involves around her foot pain, She has two daughters. Pulmonary: COPD CENTRAL NERVOUS SYSTEM: CVA Heme/Onc: No pertinent hx Hepatobiliary: No pertinent hx Musculoskeletal: Osteoarthritis Infectious disease: No pertinent hx Renal/: No pertinent hx Family History Family History: Hypertension Social History Smoke: Quit ALCOHOL: none Drugs: None Current Medications Current Medications Current Medications Sodium Chloride (Normal Saline Flush) 3 ml PRN DAILY PRN IV AFTER MEDS AND BLOOD DRAWS; Start 01/25/21 at 04:45 Active Scripts Active Reported Escitalopram Oxalate 10 Mg Tablet 10 Mg PO DAILY Atorvastatin Calcium 10 Mg Tablet 10 Mg PO HS Ferrous Sulfate 325 Mg Tablet 325 Mg PO DAILY Potassium Chloride (Potassium Chloride) 20 Meq Tablet.er 20 Meq PO TID Xarelto (Rivaroxaban) 20 Mg Tablet 20 Mg PO DAILY Indapamide 1.25 Mg Tablet 1.25 Mg PO DAILY Felodipine Er (Felodipine) 10 Mg Tab.er.24h 10 Mg PO DAILY Zetia (Ezetimibe) 10 Mg Tablet 10 Mg PO DAILY Arimidex (Anastrozole) 1 Mg Tablet 1 Mg PO DAILY Allergies Allergies: Coded Allergies: [id number] Reductase Inhibitor (Verified Adverse Reaction, Intermediate, myalgia, 09/15/18) ROS General: YES: Fatigue; No: Chills, Night Sweats, Malaise, Appetite, Other PSYCHOLOGICAL ROS: No: Anxiety, Behavioral Disorder, Concentration difficultie, Decreased libido, Depression, Disorientation, Hallucinations, Hostility, Irrit ablity, Memory difficulties, Mood Swings, Obsessive thoughts, Physical abuse, Sexual abuse, Sleep disturbances, Suicidal ideation, Other Eyes: No Blurry vision, No Decreased vision, No Double vision, No Dry eyes, No Excessive tearing, No Eye Pain, No Itchy Eyes, No Loss of vision, No Photophobia, No Scotomata, No Uses contacts, No Uses glasses, No Other HEENT: No: Heacaches, Visual Changes, Hearing change, Nasal congestion, Nasal discharge, Oral lesions, Sinus pain, Sore Throat, Epistaxis, Sneezing, Snoring, Tinnitus, Vertigo, Vocal changes, Other Hematological and Lymphatic: YES: Blood Clots; No: Bleeding Problems, Blood Transfusions, Brusing, Night Sweats, Pallor, Swollen Lymph Nodes, Other ENDOCRINE: No: Breast Changes, Galactorrhea, Hair Pattern Changes, Hot Flashes, Malaise/lethargy, Mood Swings, Palpitations, Polydipsia/polyuria, Skin Changes, Temperature Intolerance, Unexpected Weight Changes, Other Respiratory: No: Cough, Hemoptysis, Orthopnea, Pleuritic Pain, Shortness of breath, SOB with excertion, Sputum Changes, Stridor, Tachypnea, Wheezing, Other Cardiovascular: No Chest Pain, No Palpitations, No Orthopnea, No Paroxysmal Noc. Dyspnea, No Edema, No Lt Headedness, No Other Gastrointestinal: No Nausea, No Vomiting, No Abdominal Pain, No Diarrhea, No Constipation, No Melena, No Hematochezia, No Other Genitourinary: No Dysuria, No Frequency, No Incontinence, No Hematuria, No Retention, No Discharge, No Urgency, No Pain, No Flank Pain, No Other, No , No , No , No , No , No , No Musculoskeletal: Yes Gait Disturbance, Yes Joint Stiffness, Yes Muscular Weakness Neurological: Yes Gait Disturbance Skin: No Dry Skin, No Eczema, No Hair Changes, No Lumps, No Mole Changes, No Mottling, No Nail Changes, No Pruritus, No Rash, No Skin Lesion Changes, No Other, No Acne Vitals Vitals Vital Signs Date Time Temp Pulse Resp B/P (MAP) Pulse Ox O2 Delivery O2 Flow Rate FiO2 01/26/21 07:00 98.9 63 18 148/70 (96) 99 Room Air 98.9 Physical Exam General: Alert, Oriented X3, Cooperative, No acute distress Abdomen: Normal bowel sounds, Soft, No tenderness Extremities: No clubbing, No cyanosis, No edema Skin: No significant lesion Labs LABS * >200 FT Ambulation Comments * no loss of balance. Pt does have a little ataxia that pt states is normal. Pt states has been using cane for the last 10 years. Also had a stroke in 2020. pt states is at baseline. No loss of balance turning, backing, and reaching to the floor. Stairs Assistance Required * Independent Number of Stairs * 5-9 Stairs Assistive Device * Cane * Rail on Right Clinical Presentation * Stable Evaluation Complexity Level * Low Complexity Pt/caregiver agrees with plan of care/goals * Yes Patient condition at conclusion of therapy * Pt in chair * Call light in reach * Phone in reach * PtIn no apparent distress * Pt denies further needs No Further Skilled P.T. Intervention Required * Eval only-No PT Needs Discharge Recommendations * Home independent Discharge Recommendation Comments * owns cane and walker.Signed PATIENT: DEE RAE AACCOUNT: [id number] : 1950 LOCATION: [address] [place] [address] AGE: 70 SEX: F EXAM STATUS: ADM IN ORD. PHYSICIAN: TEREZA SANTOS MD REASON: PVD PROCEDURE: DUPLEX LOWER EXTREMITY BILAT Bilateral lower extremity arterial duplex Doppler ultrasound HISTORY: Peripheral vascular disease. FINDINGS: Right leg demonstrates calcified plaquing without high-grade stenosis, thrombus or large vessel occlusion. The peroneal artery is not visualized may be occluded. There are triphasic waveforms of the femoral and popliteal arteries and monophasic waveforms of the calf arteries. Individual flow velocities are described below. Common femoral artery: 123 cm/s. Profunda femoral artery: 100 cm/s. Superficial femoral artery: 113 cm/s proximal, 73 cm/s mid segment, 118 cm/s distal. Popliteal artery: 64 cm/s. Posterior tibial artery: 20 cm/s proximal, 72 cm/s distal. Peroneal artery: Not visualized. Anterior tibial artery: 39 cm/s. Dorsalis pedis artery: 31 cm/s. Left leg demonstrates calcified plaquing without high-grade stenosis, thrombus or occlusion. There are triphasic waveforms of the femoral and popliteal arteries and calf arteries. Individual flow velocities are described below. Common femoral artery: 146 cm/s. Profunda femoral artery: 44 cm/s. Superficial femoral artery: 89 cm/s proximal, 120 cm/s mid segment, 85 cm/s distal. Popliteal artery: 106 cm/s. Posterior tibial artery: 65 cm/s proximal, 54 cm/s distal. Peroneal artery: 45 cm/s. Anterior tibial artery: 73 cm/s. Dorsalis pedis artery: 52 cm/s. IMPRESSION: 1. The right peroneal artery is not visualized may be excluded. 2. The right calf arteries demonstrate monophasic waveforms indicating peripheral small vessel disease. Electronically signed by: David Beasley MD (01/25/2021 11:11 PM) [facility] [place] Test 01/25/21 21:00 Urine Collection Type Unknown Urine Color Yellow Urine Clarity Clear Urine pH 7.0 (<5.0-8.0) Urine Specific [place] 1.020 (1.000-1.030) Urine Protein Negative mg/dL (NEG-TRACE) Urine Glucose (UA) Negative mg/dL (NEG) Urine Ketones (Stick) Negative mg/dL (NEG) Urine Blood Moderate (NEG) Urine Nitrite Negative (NEG) Urine Bilirubin Negative (NEG) Urine Urobilinogen Dipstick 0.2 mg/dL (0.2 mg/dL) Urine Leukocyte Esterase Small (NEG) Urine RBC 11-20 /HPF (0-2) Urine WBC 1-4 /HPF (0-4) Urine Squamous Epithelial Cells Few /LPF Urine Bacteria 0 /HPF (0-FEW) Comment Review of Relevant I have reviewed the following items theresa (where applicable) has been applied. Labs Laboratory Tests Test 01/25/21 06:40 01/25/21 21:00 White Blood Count 6.1 x10^3/uL (4.0-11.0) Red Blood Count 4.21 x10^6/uL (3.50-5.40) Hemoglobin 11.5 g/dL (12.0-15.5) Hematocrit 35.2 % (36.0-47.0) Mean Corpuscular Volume 84 fL (79-100) Mean Corpuscular Hemoglobin 27 pg (25-35) Mean Corpuscular Hemoglobin Concent 33 g/dL (31-37) Red Cell Distribution Width 27.8 % (11.5-14.5) Platelet Count 197 x10^3/uL (140-400) Neutrophils (%) (Auto) 64 % (31-73) Lymphocytes (%) (Auto) 23 % (24-48) Monocytes (%) (Auto) 9 % (0-9) Eosinophils (%) (Auto) 4 % (0-3) Basophils (%) (Auto) 0 % (0-3) Neutrophils # (Auto) 3.9 x10^3/uL (1.8-7.7) Lymphocytes # (Auto) 1.4 x10^3/uL (1.0-4.8) Monocytes # (Auto) 0.6 x10^3/uL (0.0-1.1) Eosinophils # (Auto) 0.2 x10^3/uL (0.0-0.7) Basophils # (Auto) 0.0 x10^3/uL (0.0-0.2) Platelet Estimate Adequate (ADEQUATE) Anisocytosis Present Prothrombin Time 15.0 SEC (11.7-14.0) Prothromb Time International Ratio 1.2 (0.8-1.1) Sodium Level 145 mmol/L (136-145) Potassium Level 3.6 mmol/L (3.5-5.1) Chloride Level 107 mmol/L (98-107) Carbon Dioxide Level 31 mmol/L (21-32) Anion Gap 7 (6-14) Blood Urea Nitrogen 15 mg/dL (7-20) Creatinine 0.8 mg/dL (0.6-1.0) Estimated GFR (Cockcroft-Gault) 86.3 Glucose Level 73 mg/dL (70-99) Calcium Level 9.2 mg/dL (8.5-10.1) Magnesium Level 2.0 mg/dL (1.8-2.4) Urine Collection Type Unknown Urine Color Yellow Urine Clarity Clear Urine pH 7.0 (<5.0-8.0) Urine Specific Chelsea 1.020 (1.000-1.030) Urine Protein Negative mg/dL (NEG-TRACE) Urine Glucose (UA) Negative mg/dL (NEG) Urine Ketones (Stick) Negative mg/dL (NEG) Urine Blood Moderate (NEG) Urine Nitrite Negative (NEG) Urine Bilirubin Negative (NEG) Urine Urobilinogen Dipstick 0.2 mg/dL (0.2 mg/dL) Urine Leukocyte Esterase Small (NEG) Urine RBC 11-20 /HPF (0-2) Urine WBC 1-4 /HPF (0-4) Urine Squamous Epithelial Cells Few /LPF Urine Bacteria 0 /HPF (0-FEW) Laboratory Tests Test 01/25/21 21:00 Urine Collection Type Unknown Urine Color Yellow Urine Clarity Clear Urine pH 7.0 (<5.0-8.0) Urine Specific Chelsea 1.020 (1.000-1.030) Urine Protein Negative mg/dL (NEG-TRACE) Urine Glucose (UA) Negative mg/dL (NEG) Urine Ketones (Stick) Negative mg/dL (NEG) Urine Blood Moderate (NEG) Urine Nitrite Negative (NEG) Urine Bilirubin Negative (NEG) Urine Urobilinogen Dipstick 0.2 mg/dL (0.2 mg/dL) Urine Leukocyte Esterase Small (NEG) Urine RBC 11-20 /HPF (0-2) Urine WBC 1-4 /HPF (0-4) Urine Squamous Epithelial Cells Few /LPF Urine Bacteria 0 /HPF (0-FEW) Medications Current Medications Sodium Chloride (Normal Saline Flush) 3 ml PRN DAILY PRN IV AFTER MEDS AND BLOOD DRAWS; Start 01/25/21 at 04:45 Anastrozole (Arimidex) 1 mg DAILY PO Last administered on 01/25/21 13:50; Start 01/25/21 at 12:00 Atorvastatin Calcium (Lipitor) 10 mg HS PO Last administered on 01/25/21at 23:01; Start 01/25/21 at 21:00 EZETIMIBE (Zetia) 10 mg DAILY PO Last administered on 01/25/21at 13:45; Start 01/25/21 at 12:00 Ferrous Sulfate (Feosol) 325 mg DAILY PO Last administered on 01/25/21 13:46; Start 01/25/21 at 12:00 Potassium Chloride (Klor-Con) 20 meq TID PO Last administered on 01/25/21at 23:01; Start 01/25/21 at 14:00 Citalopram Hydrobromide (CeleXA) 20 mg DAILY PO Last administered on 01/25/21 13:45; Start 01/25/21 at 12:00 Amlodipine Besylate (Norvasc) 10 mg DAILY PO Last administered on 01/25/21 13:45; Start 01/25/21 at 12:00 Indapamide (Lozol) 1.25 mg DAILY PO ; Start 01/25/21 at 12:00 Rivaroxaban (Xarelto) 20 mg DAILY08 PO Last administered on 01/25/21at 13:45; Start 01/25/21 at 12:00 Sodium Chloride (Normal Saline Flush) 3 ml QSHIFT PRN IV AFTER MEDS AND BLOOD DRAWS; Start 01/25/21 at 13:45; Stop 01/25/21 at 16:14; Status DC Ondansetron HCl (Zofran) 4 mg PRN Q4HRS PRN IV NAUSEA/VOMITING; Start 01/25/21 at 13:45 Acetaminophen (Tylenol) 650 mg PRN Q4HRS PRN PO TEMP OVER 100.4F OR MILD PAIN; Start 01/25/21 at 13:45 Al Hydroxide/Mg Hydroxide (Mylanta Plus Xs) 30 ml PRN DAILY PRN PO HEARTBURN / GAS; Start 01/25/21 at 13:45 Sodium Monofluorophosphate (Fleet Adult) 133 ml PRN DAILY PRN IA CONSTIPATION; Start 01/25/21 at 13:45 Docusate Sodium (Colace) 100 mg PRN BID PRN PO HARD STOOLS; Start 01/25/21 at 13:45 Albuterol/ Ipratropium (Duoneb) 3 ml Q4H NEB ; Start 01/25/21 at 13:45; Stop 01/25/21 at 14:23; Status DC Guaifenesin (Robitussin) 200 mg PRN Q4HRS PRN PO COUGH; Start 01/25/21 at 13:45 Lorazepam (Ativan) 0.5 mg PRN Q4HRS PRN PO ANXIETY / AGITATION; Start 01/25/21 at 13:45 Albuterol/ Ipratropium (Duoneb) 3 ml PRN Q4HRS PRN NEB SHORTNESS OF BREATH; Start 01/26/21 at 13:45 Active Scripts Active Reported Escitalopram Oxalate 10 Mg Tablet 10 Mg PO DAILY Atorvastatin Calcium 10 Mg Tablet 10 Mg PO HS Ferrous Sulfate 325 Mg Tablet 325 Mg PO DAILY Potassium Chloride (Potassium Chloride) 20 Meq Tablet.er 20 Meq PO TID Xarelto (Rivaroxaban) 20 Mg Tablet 20 Mg PO DAILY Indapamide 1.25 Mg Tablet 1.25 Mg PO DAILY Felodipine Er (Felodipine) 10 Mg Tab.er.24h 10 Mg PO DAILY Zetia (Ezetimibe) 10 Mg Tablet 10 Mg PO DAILY Arimidex (Anastrozole) 1 Mg Tablet 1 Mg PO DAILY Vitals/I & O Vital Sign - Last 24 Hours 01/25/21 01/25/21 01/25/21 01/25/21 10:42 13:45 14:05 19:14 Temp 98.0 98.4 98.3 98.0 98.4 98.3 Pulse 51 60 54 64 Resp 19 20 20 B/P (MAP) 120/63 (82) 138/64 (88) 125/59 (81) Pulse Ox 99 98 100 O2 Delivery Room Air Room Air Room Air 01/25/21 01/25/21 01/26/21 01/26/21 20:00 23:01 03:14 07:00 Temp 98.3 98.1 98.9 98.3 98.1 98.9 Pulse 59 64 63 Resp 18 19 18 B/P (MAP) 156/67 (96) 137/68 (91) 148/70 (96) Pulse Ox 96 100 99 O2 Delivery Room Air Room Air Room Air Room Air Intake and Output 01/25/21 01/25/21 01/26/21 15:00 23:00 07:00 Intake Total 550 ml 150 ml Output Total 300 ml 250 ml Balance -300 ml 300 ml 150 ml Justicifation of Admission Dx: Justifications for Admission: Justification of Admission Dx: No Chronic Renal Failure: Encephalopathy TEREZA SANTOS MD Jan 26, 2021 08:14
[2021-01-26] MEDS: INDAPAMIDE 2.5 MG TABLET PO SCH ×2 (09:00→11:10)
[2021-01-26 11:00] VITALS: BP 112/61
[2021-01-26] MEDS: CITALOPRAM 20 MG TABLET. PO SCH (11:03)
[2021-01-26] MEDS: EZETIMIBE 10 MG TABLET. PO SCH (11:04)
[2021-01-26] MEDS: POTASSIUM CHLORIDE 20 MEQ TABLET.ER. PO SCH (11:04)
[2021-01-26] MEDS: RIVAROXABAN 10 MG TABLET. PO SCH (11:04)
[2021-01-26] MEDS: FERROUS SULFATE 325 MG TABLET. PO SCH (11:04)
[2021-01-26 11:05] VITALS: BP 112/61
[2021-01-26] MEDS: amLODIPine BESYLATE 10 MG TABLET PO SCH (11:05)
[2021-01-26] MEDS: ANASTROZOLE 1 MG TABLET PO SCH (11:10)
--- NOTE | 2021-01-26 12:39 | PDOC2 ---
CONSULT Date of Service Date of Service DATE: 01/26/21 TIME: 12:07 Reason for Consult Reason for Consult: Lower extremity weakness Referring Physician Referring Physician: Dr. Rasheed Identification/Chief Complaint Chief Complaint Headache, nausea, lower extremity weakness Source Source: Chart review, Patient History of Present Illness Reason for Visit: This is a pleasant 70-year-old female who presented to the emergency room with headache and nausea. During her evaluation she complained of lower extremity weakness. Patient has a past medical history of hypertension, hyperlipidemia, COPD, breast cancer, CVA with residual aphasia, peripheral vascular disease, and venous insufficiency with varicose veins. She denies any lower extremity weakness. She states she is used a cane for over 10 years more due to an imbalance. She complains of intermittent mild foot cramping. Typically after days that she has worked. She takes an [id number] medication to relieve this discomfort. She denies any lower extremity claudication. She has no wounds or rashes on her lower extremity. She has no wrist pain. She does have significant varicose veins and has had evaluation in the past for venous insufficiency but no sugrical treatment. She has worn compression hose in the past. She does report that she has been on Xarelto for several years even prior to her CVA she believes this potentially could have been due to clots. Information is somewhat difficult to obtain due to her aphasia. While evaluating the patient Dr. Villalobos came into the room. He informed the patient he has reviewed the films and no new stroke noted on imaging and he is okay with her discharging to home. She does continue to smoke about 4 to 5 cigarettes/day. She denies any current headache, nausea or vomiting. She denies any shortness of breath or chest pain. Past Medical History Cardiovascular: HTN, Other (?DVT) Pulmonary: COPD CENTRAL NERVOUS SYSTEM: CVA Heme/Onc: No pertinent hx Hepatobiliary: No pertinent hx Psych: Anxiety, Depression Musculoskeletal: Osteoarthritis Infectious disease: No pertinent hx Renal/: No pertinent hx Past Surgical History Past Surgical History: Other (Left breast lumpectomy, foot surgery, ? repair of hammertoe deformity) Family History Family History: Hypertension Social History Social History continues to work parts delivery driver at [employer] <1 pack per day ALCOHOL: none Drugs: None Lives: with Family Current Medications Current Medications Current Medications Sodium Chloride (Normal Saline Flush) 3 ml PRN DAILY PRN IV AFTER MEDS AND BLOOD DRAWS; Start 01/25/21 at 04:45 Anastrozole (Arimidex) 1 mg DAILY PO Last administered on 01/26/21 11:10; Start 01/25/21 at 12:00 Atorvastatin Calcium (Lipitor) 10 mg HS PO Last administered on 01/25/21at 23:01; Start 01/25/21 at 21:00 EZETIMIBE (Zetia) 10 mg DAILY PO Last administered on 01/26/21 11:04; Start 01/25/21 at 12:00 Ferrous Sulfate (Feosol) 325 mg DAILY PO Last administered on 01/26/21 11:04; Start 01/25/21 at 12:00 Potassium Chloride (Klor-Con) 20 meq TID PO Last administered on 01/26/21 11:04; Start 01/25/21 at 14:00 Citalopram Hydrobromide (CeleXA) 20 mg DAILY PO Last administered on 01/26/21 11:03; Start 01/25/21 at 12:00 Amlodipine Besylate (Norvasc) 10 mg DAILY PO Last administered on 01/26/21 11:05; Start 01/25/21 at 12:00 Indapamide (Lozol) 1.25 mg DAILY PO Last administered on 01/26/21 11:10; Start 01/25/21 at 12:00 Rivaroxaban (Xarelto) 20 mg DAILY08 PO Last administered on 01/26/21 11:04; Start 01/25/21 at 12:00 Sodium Chloride (Normal Saline Flush) 3 ml QSHIFT PRN IV AFTER MEDS AND BLOOD DRAWS; Start 01/25/21 at 13:45; Stop 01/25/21 at 16:14; Status DC Ondansetron HCl (Zofran) 4 mg PRN Q4HRS PRN IV NAUSEA/VOMITING; Start 01/25/21 at 13:45 Acetaminophen (Tylenol) 650 mg PRN Q4HRS PRN PO TEMP OVER 100.4F OR MILD PAIN; Start 01/25/21 at 13:45 Al Hydroxide/Mg Hydroxide (Mylanta Plus Xs) 30 ml PRN DAILY PRN PO HEARTBURN / GAS; Start 01/25/21 at 13:45 Sodium Monofluorophosphate (Fleet Adult) 133 ml PRN DAILY PRN PA CONSTIPATION; Start 01/25/21 at 13:45 Docusate Sodium (Colace) 100 mg PRN BID PRN PO HARD STOOLS; Start 01/25/21 at 13:45 Albuterol/ Ipratropium (Duoneb) 3 ml Q4H NEB ; Start 01/25/21 at 13:45; Stop 01/25/21 at 14:23; Status DC Guaifenesin (Robitussin) 200 mg PRN Q4HRS PRN PO COUGH; Start 01/25/21 at 13:45 Lorazepam (Ativan) 0.5 mg PRN Q4HRS PRN PO ANXIETY / AGITATION; Start 01/25/21 at 13:45 Albuterol/ Ipratropium (Duoneb) 3 ml PRN Q4HRS PRN NEB SHORTNESS OF BREATH; Start 01/26/21 at 13:45 Active Scripts Active Reported Escitalopram Oxalate 10 Mg Tablet 10 Mg PO DAILY Atorvastatin Calcium 10 Mg Tablet 10 Mg PO HS Ferrous Sulfate 325 Mg Tablet 325 Mg PO DAILY Potassium Chloride (Potassium Chloride) 20 Meq Tablet.er 20 Meq PO TID Xarelto (Rivaroxaban) 20 Mg Tablet 20 Mg PO DAILY Indapamide 1.25 Mg Tablet 1.25 Mg PO DAILY Felodipine Er (Felodipine) 10 Mg Tab.er.24h 10 Mg PO DAILY Zetia (Ezetimibe) 10 Mg Tablet 10 Mg PO DAILY Arimidex (Anastrozole) 1 Mg Tablet 1 Mg PO DAILY Allergies Allergies: Coded Allergies: Nmanbrc-Krv-Dva Reductase Inhibitor (Verified Adverse Reaction, Intermediate, myalgia, 09/15/18) ROS Review of System Constitutional: Denies fever or chills Eyes: Denies any visual disturbances HENT: Denies nasal congestion or sore throat Respiratory: Denies cough or shortness of breath Cardiovascular: Denies any palpitations or chest pain GI: Denies abdominal pain, nausea, vomiting, bloody stools or diarrhea : Denies dysuria or hematuria Musculoskeletal: As per HPI Integument: As per HPI Neurologic: Gait imbalance Endocrine: Denies any diabetes Psyhciatric: Anxiety Physical Exam Physical Exam General: Alert and oriented X3 HEENT: Atraumatic, Pupils equal, round. Mucous membranes moist. Neck: Supple, no lymphadenopathy Cardiac: Heart rate regular with murmur. Normal carotid pulses. No bruit. Lungs: CTA, non-labored respirations. Abdomen: Thin, Soft, nontender, nondistended, no palpable masses. Extremities: 2+ palpable bilateral radial and femoral pulses. 2+ palpable left dorsalis pedis and 1+ posterior tibial pulse. Weakly palpable right dorsalis pedis pulse with monophasic Doppler signal. Musculoskeletal: Gait steady. Moving all extremities. Skin: Warm, dry, pink. No rashes or lesions. Bilateral calf varicose veins, Right worse than left. Neurological: Motor and sensation intact. 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 Expressive Aphasia given time can find her words, follows commands. No facial asymmetry. Psychiatry: Normal mood. Vitals VITALS Vital Signs Date Time Temp Pulse Resp B/P (MAP) Pulse Ox O2 Delivery O2 Flow Rate FiO2 01/26/21 11:05 62 112/61 01/26/21 11:00 98.2 18 100 Room Air 98.2 Labs Labs Laboratory Tests Test 01/25/21 06:40 01/25/21 21:00 White Blood Count 6.1 x10^3/uL (4.0-11.0) Red Blood Count 4.21 x10^6/uL (3.50-5.40) Hemoglobin 11.5 g/dL (12.0-15.5) Hematocrit 35.2 % (36.0-47.0) Mean Corpuscular Volume 84 fL (79-100) Mean Corpuscular Hemoglobin 27 pg (25-35) Mean Corpuscular Hemoglobin Concent 33 g/dL (31-37) Red Cell Distribution Width 27.8 % (11.5-14.5) Platelet Count 197 x10^3/uL (140-400) Neutrophils (%) (Auto) 64 % (31-73) Lymphocytes (%) (Auto) 23 % (24-48) Monocytes (%) (Auto) 9 % (0-9) Eosinophils (%) (Auto) 4 % (0-3) Basophils (%) (Auto) 0 % (0-3) Neutrophils # (Auto) 3.9 x10^3/uL (1.8-7.7) Lymphocytes # (Auto) 1.4 x10^3/uL (1.0-4.8) Monocytes # (Auto) 0.6 x10^3/uL (0.0-1.1) Eosinophils # (Auto) 0.2 x10^3/uL (0.0-0.7) Basophils # (Auto) 0.0 x10^3/uL (0.0-0.2) Platelet Estimate Adequate (ADEQUATE) Anisocytosis Present Prothrombin Time 15.0 SEC (11.7-14.0) Prothromb Time International Ratio 1.2 (0.8-1.1) Sodium Level 145 mmol/L (136-145) Potassium Level 3.6 mmol/L (3.5-5.1) Chloride Level 107 mmol/L (98-107) Carbon Dioxide Level 31 mmol/L (21-32) Anion Gap 7 (6-14) Blood Urea Nitrogen 15 mg/dL (7-20) Creatinine 0.8 mg/dL (0.6-1.0) Estimated GFR (Cockcroft-Gault) 86.3 Glucose Level 73 mg/dL (70-99) Calcium Level 9.2 mg/dL (8.5-10.1) Magnesium Level 2.0 mg/dL (1.8-2.4) Urine Collection Type Unknown Urine Color Yellow Urine Clarity Clear Urine pH 7.0 (<5.0-8.0) Urine Specific [place] 1.020 (1.000-1.030) Urine Protein Negative mg/dL (NEG-TRACE) Urine Glucose (UA) Negative mg/dL (NEG) Urine Ketones (Stick) Negative mg/dL (NEG) Urine Blood Moderate (NEG) Urine Nitrite Negative (NEG) Urine Bilirubin Negative (NEG) Urine Urobilinogen Dipstick 0.2 mg/dL (0.2 mg/dL) Urine Leukocyte Esterase Small (NEG) Urine RBC 11-20 /HPF (0-2) Urine WBC 1-4 /HPF (0-4) Urine Squamous Epithelial Cells Few /LPF Urine Bacteria 0 /HPF (0-FEW) Laboratory Tests Test 01/25/21 21:00 Urine Collection Type Unknown Urine Color Yellow Urine Clarity Clear Urine pH 7.0 (<5.0-8.0) Urine Specific [place] 1.020 (1.000-1.030) Urine Protein Negative mg/dL (NEG-TRACE) Urine Glucose (UA) Negative mg/dL (NEG) Urine Ketones (Stick) Negative mg/dL (NEG) Urine Blood Moderate (NEG) Urine Nitrite Negative (NEG) Urine Bilirubin Negative (NEG) Urine Urobilinogen Dipstick 0.2 mg/dL (0.2 mg/dL) Urine Leukocyte Esterase Small (NEG) Urine RBC 11-20 /HPF (0-2) Urine WBC 1-4 /HPF (0-4) Urine Squamous Epithelial Cells Few /LPF Urine Bacteria 0 /HPF (0-FEW) Images Images Lower extremity arterial ultrasound FINDINGS: Right leg demonstrates calcified plaquing without high-grade stenosis, thrombus or large vessel occlusion. The peroneal artery is not visualized may be occluded. There are triphasic waveforms of the femoral and popliteal arteries and monophasic waveforms of the calf arteries. Individual flow velocities are described below. Common femoral artery: 123 cm/s. Profunda femoral artery: 100 cm/s. Superficial femoral artery: 113 cm/s proximal, 73 cm/s mid segment, 118 cm/s distal. Popliteal artery: 64 cm/s. Posterior tibial artery: 20 cm/s proximal, 72 cm/s distal. Peroneal artery: Not visualized. Anterior tibial artery: 39 cm/s. Dorsalis pedis artery: 31 cm/s. Left leg demonstrates calcified plaquing without high-grade stenosis, thrombus or occlusion. There are triphasic waveforms of the femoral and popliteal arteries and calf arteries. Individual flow velocities are described below. Common femoral artery: 146 cm/s. Profunda femoral artery: 44 cm/s. Superficial femoral artery: 89 cm/s proximal, 120 cm/s mid segment, 85 cm/s distal. Popliteal artery: 106 cm/s. Posterior tibial artery: 65 cm/s proximal, 54 cm/s distal. Peroneal artery: 45 cm/s. Anterior tibial artery: 73 cm/s. Dorsalis pedis artery: 52 cm/s. IMPRESSION: 1. The right peroneal artery is not visualized may be excluded. 2. The right calf arteries demonstrate monophasic waveforms indicating peripheral small vessel disease. Assessment/Plan Assessment/Plan 70-year-old female with peripheral arterial disease and venous insufficiency. Lower extremity arterial ultrasound suggests some peripheral arterial disease in her right calf. Patient denies any history of claudication, wounds or rest pain. She does have some bilateral intermittent foot cramping at night. This is more likely related to her venous insufficiency. Would not recommend any arterial or surgical intervention at this time. Would recommend the patient continue compression therapy and leg elevation. Would also recommend formal venous imaging. I did discuss plan of care at length with the patient. She will consider following up in our office for a venous evaluation. She does agree to wearing compression therapy and leg elevation. Recommend patient continue statin therapy. Also would add daily aspirin if tolerated. Recommend tobacco cessation. Discussed plan of care with Dr. Villalobos. Patient is likely to be discharged to home later today. Recommend patient follow-up in our office as needed. Discussed history and physical examination with Dr. Golden along with plan of care. She agrees with above. Vascular surgery staff note: 70 y/o seen and examined. I agree with the above assessment and plan unless otherwise stated. Pt has complained of bilateral leg weakness and leg cramps. She has mild peripheral vascular disease and venous insufficiency. Recommend conservative treatment for now with f/u in our clinic as needed. BOBBY Miles MD, APRN Jan 26, 2021 12:39 BHARTI BYRD II, MD Jan 26, 2021 15:42
--- NOTE | 2021-01-26 13:05 | PDOC3 ---
Discharge Summary Date of Admission: Jan 25, 2021 Date of Discharge: Jan 26, 2021 Follow-Up: Other (2 weeks) Admitting Diagnosis comment: History of Present Illness History of Present Illness 70 YR OLD FEMALE SEEN AT [facility] went to the emergency room for headache and nausea at the direction of her primary care physician, Dr. Cerda. The emergency room physician STATED patient was complaining of left leg weakness, but she denies any. 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 on previous mri l/s Past Medical History Past Medical History PAST MEDICAL AND SURGICAL HISTORY: Lumpectomy and breast biopsy successful lumpectomy and sentinel lymph node procedure for her favorable histology left-sided breast cancer. Her margins are negative. 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 She had a right ankle and foot fracture, which have been very difficult to resolve and she still requires a walker. She has some anxiety. osteoarthritis. . She has peripheral vascular disease and hypertension. severe aphasia r/t a prior CVA May of 2020. ALLERGIES: STATINS CAUSE HER TO HAVE MYALGIA. MEDICATIONS: Medications are detailed in full in the electronic medical record. FAMILY HISTORY: Detailed family history is negative for breast or ovarian carcinoma. SOCIAL HISTORY: She is for 50 years. She has smoked for 40 years She has had significant trauma psychologically much of this involves around her foot pain, She has two daughters. Pulmonary: COPD CENTRAL NERVOUS SYSTEM: CVA Heme/Onc: No pertinent hx Hepatobiliary: No pertinent hx Musculoskeletal: Osteoarthritis Infectious disease: No pertinent hx Renal/: No pertinent hx Family History Family History: Hypertension Social History Smoke: Quit ALCOHOL: none Drugs: None Current Medications Current Medications Current Medications Sodium Chloride (Normal Saline Flush) 3 ml PRN DAILY PRN IV AFTER MEDS AND BLOOD DRAWS; Start 01/25/21 at 04:45 Active Scripts hospital course complications none d/c condition good procedures mri head, cvc monitor, doppler study both legs , no evidence new cva MRI BRAIN WO Date: 01/25/2021 4:15 PM Indication: Weakness, abnormal head CT (entirely explained by known history of stroke) Comparison: CT 01/24/2021. Technique: Multiplanar multisequence MRI of the brain was performed without intravenous contrast using the standard protocol. Findings: No acute infarct. No acute hemorrhage. The ventricles are normal in size and configuration without hydrocephalus. Mild scattered FLAIR hyperintensities in the subcortical and periventricular deep white matter, a nonspecific finding, most commonly seen with chronic small vessel ischemic disease. Moderate-sized area of left parietal encephalomalacia. The scalp and calvarium are normal. The pituitary and sella are normal. No Chiari malformation. Mild incompletely characterized degenerative spondylosis of the visualized upper cervical spine. The visualized orbits and globes are normal. The visualized paranasal sinuses are clear. The mastoid air cells are clear. Normal flow voids within the vertebral, basilar, and internal carotid arteries indicating patency. IMPRESSION: 1. No acute infarct, acute hemorrhage, mass, or hydrocephalus. 2. Moderate-sized area of left parietal encephalomalacia. 3. Mild chronic small vessel ischemic disease. Electronically signed by: Ro Rhodes MD (01/25/2021 5:10 PM) [id number] DICTATED and SIGNED BY: RO RHODES MD DATE: 01/25/21 [id number] consults neurology, vascular surgery complications none prognosis good, she should stop smoking discharge dx Assessment/Plan IMPRESSION Left leg weakness, appears stable NEW onset with development of encephalomalacia in the left posterior frontal lobe compared to the study of May of last year. Moderate-sized area of left parietal encephalomalacia. hx cva TOBACCO ABUSE COPD aphasia, improved ductal BREAST carcinoma in situ,post lumpectomy OSTEOARTHRITIS peripheral vascular disease right foot pain hypertension. severe aphasia r/t a prior CVA May of 2020. 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 The right peroneal artery is not visualized may be excluded. c/w pvd plan admit MRI HEAD reviewed HOME MEDS PT/OT/ST dvt prophylaxis arterial doppler both legs REVIEWED consult vascular surgery 01/26 RIGHT FOOT ACHES AT TIMES no critical claudication symptoms DOPPLER REVIEWED D/W RN d/c planning 37 min Justifications for Admission Other Justification History of Present Illness History of Present Illness dentification/Chief Complaint Chief Complaint left leg weakness per ER History of Present Illness History of Present Illness 70 YR OLD FEMALE SEEN AT [facility] went to the emergency room for headache and nausea at the direction of her primary care physician, Dr. Cerda. The emergency room physician STATED patient was complaining of left leg weakness, but she denies any. 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 on previous mri l/s Past Medical History Past Medical History PAST MEDICAL AND SURGICAL HISTORY: Lumpectomy and breast biopsy successful lumpectomy and sentinel lymph node procedure for her favorable histology left-sided breast cancer. Her margins are negative. 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 She had a right ankle and foot fracture, which have been very difficult to resolve and she still requires a walker. She has some anxiety. osteoarthritis. . She has peripheral vascular disease and hypertension. severe aphasia r/t a prior CVA May of 2020. ALLERGIES: STATINS CAUSE HER TO HAVE MYALGIA. MEDICATIONS: Medications are detailed in full in the electronic medical record. FAMILY HISTORY: Detailed family history is negative for breast or ovarian carcinoma. SOCIAL HISTORY: She is for 50 years. She has smoked for 40 years She has had significant trauma psychologically much of this involves around her foot pain, She has two daughters. Pulmonary: COPD CENTRAL NERVOUS SYSTEM: CVA Heme/Onc: No pertinent hx Hepatobiliary: No pertinent hx Musculoskeletal: Osteoarthritis Infectious disease: No pertinent hx Renal/: No pertinent hx Family History Family History: Hypertension Social History Smoke: Quit ALCOHOL: none Drugs: None Current Medications Current Medications Current Medications Sodium Chloride (Normal Saline Flush) 3 ml PRN DAILY PRN IV AFTER MEDS AND BLOOD DRAWS; Start 01/25/21 at 04:45 Active Scripts Active Reported Escitalopram Oxalate 10 Mg Tablet 10 Mg PO DAILY Atorvastatin Calcium 10 Mg Tablet 10 Mg PO HS Ferrous Sulfate 325 Mg Tablet 325 Mg PO DAILY Potassium Chloride (Potassium Chloride) 20 Meq Tablet.er 20 Meq PO TID Xarelto (Rivaroxaban) 20 Mg Tablet 20 Mg PO DAILY Indapamide 1.25 Mg Tablet 1.25 Mg PO DAILY Felodipine Er (Felodipine) 10 Mg Tab.er.24h 10 Mg PO DAILY Zetia (Ezetimibe) 10 Mg Tablet 10 Mg PO DAILY Arimidex (Anastrozole) 1 Mg Tablet 1 Mg PO DAILY Allergies Allergies: Coded Allergies: [id number] Reductase Inhibitor (Verified Adverse Reaction, Intermediate, myalgia, 09/15/18) ROS General: YES: Fatigue; No: Chills, Night Sweats, Malaise, Appetite, Other PSYCHOLOGICAL ROS: No: Anxiety, Behavioral Disorder, Concentration difficultie, Decreased libido, Depression, Disorientation, Hallucinations, Hostility, Irritablity, Memory difficulties, Mood Swings, Obsessive thoughts, Physical abuse, Sexual abuse, Sleep disturbances, Suicidal ideation, Other Eyes: No Blurry vision, No Decreased vision, No Double vision, No Dry eyes, No Excessive tearing, No Eye Pain, No Itchy Eyes, No Loss of vision, No Photophobi a, No Scotomata, No Uses contacts, No Uses glasses, No Other HEENT: No: Heacaches, Visual Changes, Hearing change, Nasal congestion, Nasal discharge, Oral lesions, Sinus pain, Sore Throat, Epistaxis, Sneezing, Snoring, Tinnitus, Vertigo, Vocal changes, Other Hematological and Lymphatic: YES: Blood Clots; No: Bleeding Problems, Blood Transfusions, Brusing, Night Sweats, Pallor, Swollen Lymph Nodes, Other ENDOCRINE: No: Breast Changes, Galactorrhea, Hair Pattern Changes, Hot Flashes, Malaise/lethargy, Mood Swings, Palpitations, Polydipsia/polyuria, Skin Changes, Temperature Intolerance, Unexpected Weight Changes, Other Respiratory: No: Cough, Hemoptysis, Orthopnea, Pleuritic Pain, Shortness of breath, SOB with excertion, Sputum Changes, Stridor, Tachypnea, Wheezing, Other Cardiovascular: No Chest Pain, No Palpitations, No Orthopnea, No Paroxysmal Noc. Dyspnea, No Edema, No Lt Headedness, No Other Gastrointestinal: No Nausea, No Vomiting, No Abdominal Pain, No Diarrhea, No Constipation, No Melena, No Hematochezia, No Other Genitourinary: No Dysuria, No Frequency, No Incontinence, No Hematuria, No Retention, No Discharge, No Urgency, No Pain, No Flank Pain, No Other, No , No , No , No , No , No , No Musculoskeletal: Yes Gait Disturbance, Yes Joint Stiffness, Yes Muscular Weakness Neurological: Yes Gait Disturbance Skin: No Dry Skin, No Eczema, No Hair Changes, No Lumps, No Mole Changes, No Mottling, No Nail Changes, No Pruritus, No Rash, No Skin Lesion Changes, No Other, No Acne Brief Hospital Course Ms. Miller is a 70 old [sex] who presented with [leg weakness, new , hx cva ] CONDITION AT DISCHARGE: Improved Discharge Medications Current Medications Sodium Chloride (Normal Saline Flush) 3 ml PRN DAILY PRN IV AFTER MEDS AND BLOOD DRAWS; Start 01/25/21 at 04:45 Anastrozole (Arimidex) 1 mg DAILY PO Last administered on 01/26/21 11:10; Start 01/25/21 at 12:00 Atorvastatin Calcium (Lipitor) 10 mg HS PO Last administered on 01/25/21at 23:01; Start 01/25/21 at 21:00 EZETIMIBE (Zetia) 10 mg DAILY PO Last administered on 01/26/21 11:04; Start 01/25/21 at 12:00 Ferrous Sulfate (Feosol) 325 mg DAILY PO Last administered on 01/26/21 11:04; Start 01/25/21 at 12:00 Potassium Chloride (Klor-Con) 20 meq TID PO Last administered on 01/26/21 11:04; Start 01/25/21 at 14:00 Citalopram Hydrobromide (CeleXA) 20 mg DAILY PO Last administered on 01/26/21 11:03; Start 01/25/21 at 12:00 Amlodipine Besylate (Norvasc) 10 mg DAILY PO Last administered on 01/26/21 11:05; Start 01/25/21 at 12:00 Indapamide (Lozol) 1.25 mg DAILY PO Last administered on 01/26/21at 11:10; Start 01/25/21 at 12:00 Rivaroxaban (Xarelto) 20 mg DAILY08 PO Last administered on 01/26/21at 11:04; Start 01/25/21 at 12:00 Sodium Chloride (Normal Saline Flush) 3 ml QSHIFT PRN IV AFTER MEDS AND BLOOD DRAWS; Start 01/25/21 at 13:45; Stop 01/25/21 at 16:14; Status DC Ondansetron HCl (Zofran) 4 mg PRN Q4HRS PRN IV NAUSEA/VOMITING; Start 01/25/21 at 13:45 Acetaminophen (Tylenol) 650 mg PRN Q4HRS PRN PO TEMP OVER 100.4F OR MILD PAIN; Start 01/25/21 at 13:45 Al Hydroxide/Mg Hydroxide (Mylanta Plus Xs) 30 ml PRN DAILY PRN PO HEARTBURN / GAS; Start 01/25/21 at 13:45 Sodium Monofluorophosphate (Fleet Adult) 133 ml PRN DAILY PRN NE CONSTIPATION; Start 01/25/21 at 13:45 Docusate Sodium (Colace) 100 mg PRN BID PRN PO HARD STOOLS; Start 01/25/21 at 13:45 Albuterol/ Ipratropium (Duoneb) 3 ml Q4H NEB ; Start 01/25/21 at 13:45; Stop 01/25/21 at 14:23; Status DC Guaifenesin (Robitussin) 200 mg PRN Q4HRS PRN PO COUGH; Start 01/25/21 at 13:45 Lorazepam (Ativan) 0.5 mg PRN Q4HRS PRN PO ANXIETY / AGITATION; Start 01/25/21 at 13:45 Albuterol/ Ipratropium (Duoneb) 3 ml PRN Q4HRS PRN NEB SHORTNESS OF BREATH; Start 01/26/21 at 13:45 Active Scripts Active Reported Escitalopram Oxalate 10 Mg Tablet 10 Mg PO DAILY Atorvastatin Calcium 10 Mg Tablet 10 Mg PO HS Ferrous Sulfate 325 Mg Tablet 325 Mg PO DAILY Potassium Chloride (Potassium Chloride) 20 Meq Tablet.er 20 Meq PO TID Xarelto (Rivaroxaban) 20 Mg Tablet 20 Mg PO DAILY Indapamide 1.25 Mg Tablet 1.25 Mg PO DAILY Felodipine Er (Felodipine) 10 Mg Tab.er.24h 10 Mg PO DAILY Zetia (Ezetimibe) 10 Mg Tablet 10 Mg PO DAILY Arimidex (Anastrozole) 1 Mg Tablet 1 Mg PO DAILY Vital Signs Vital Signs Date Time Temp Pulse Resp B/P (MAP) Pulse Ox O2 Delivery O2 Flow Rate FiO2 01/26/21 11:05 62 112/61 01/26/21 11:00 98.2 18 100 Room Air 98.2 Labs Laboratory Tests Test 01/25/21 06:40 01/25/21 21:00 White Blood Count 6.1 x10^3/uL (4.0-11.0) Red Blood Count 4.21 x10^6/uL (3.50-5.40) Hemoglobin 11.5 g/dL (12.0-15.5) Hematocrit 35.2 % (36.0-47.0) Mean Corpuscular Volume 84 fL (79-100) Mean Corpuscular Hemoglobin 27 pg (25-35) Mean Corpuscular Hemoglobin Concent 33 g/dL (31-37) Red Cell Distribution Width 27.8 % (11.5-14.5) Platelet Count 197 x10^3/uL (140-400) Neutrophils (%) (Auto) 64 % (31-73) Lymphocytes (%) (Auto) 23 % (24-48) Monocytes (%) (Auto) 9 % (0-9) Eosinophils (%) (Auto) 4 % (0-3) Basophils (%) (Auto) 0 % (0-3) Neutrophils # (Auto) 3.9 x10^3/uL (1.8-7.7) Lymphocytes # (Auto) 1.4 x10^3/uL (1.0-4.8) Monocytes # (Auto) 0.6 x10^3/uL (0.0-1.1) Eosinophils # (Auto) 0.2 x10^3/uL (0.0-0.7) Basophils # (Auto) 0.0 x10^3/uL (0.0-0.2) Platelet Estimate Adequate (ADEQUATE) Anisocytosis Present Prothrombin Time 15.0 SEC (11.7-14.0) Prothromb Time International Ratio 1.2 (0.8-1.1) Sodium Level 145 mmol/L (136-145) Potassium Level 3.6 mmol/L (3.5-5.1) Chloride Level 107 mmol/L (98-107) Carbon Dioxide Level 31 mmol/L (21-32) Anion Gap 7 (6-14) Blood Urea Nitrogen 15 mg/dL (7-20) Creatinine 0.8 mg/dL (0.6-1.0) Estimated GFR (Cockcroft-Gault) 86.3 Glucose Level 73 mg/dL (70-99) Calcium Level 9.2 mg/dL (8.5-10.1) Magnesium Level 2.0 mg/dL (1.8-2.4) Urine Collection Type Unknown Urine Color Yellow Urine Clarity Clear Urine pH 7.0 (<5.0-8.0) Urine Specific [place] 1.020 (1.000-1.030) Urine Protein Negative mg/dL (NEG-TRACE) Urine Glucose (UA) Negative mg/dL (NEG) Urine Ketones (Stick) Negative mg/dL (NEG) Urine Blood Moderate (NEG) Urine Nitrite Negative (NEG) Urine Bilirubin Negative (NEG) Urine Urobilinogen Dipstick 0.2 mg/dL (0.2 mg/dL) Urine Leukocyte Esterase Small (NEG) Urine RBC 11-20 /HPF (0-2) Urine WBC 1-4 /HPF (0-4) Urine Squamous Epithelial Cells Few /LPF Urine Bacteria 0 /HPF (0-FEW) Laboratory Tests Test 01/25/21 21:00 Urine Collection Type Unknown Urine Color Yellow Urine Clarity Clear Urine pH 7.0 (<5.0-8.0) Urine Specific [place] 1.020 (1.000-1.030) Urine Protein Negative mg/dL (NEG-TRACE) Urine Glucose (UA) Negative mg/dL (NEG) Urine Ketones (Stick) Negative mg/dL (NEG) Urine Blood Moderate (NEG) Urine Nitrite Negative (NEG) Urine Bilirubin Negative (NEG) Urine Urobilinogen Dipstick 0.2 mg/dL (0.2 mg/dL) Urine Leukocyte Esterase Small (NEG) Urine RBC 11-20 /HPF (0-2) Urine WBC 1-4 /HPF (0-4) Urine Squamous Epithelial Cells Few /LPF Urine Bacteria 0 /HPF (0-FEW) Allergies Allergies Coded Allergies Type Severity Reaction Last Updated Verified Syxorwd-Azh-Bfc Reductase Inhibitor Adverse Reaction Intermediate myalgia 09/15/18 Yes Justicifation of Admission Dx: Justifications for Admission: Justification of Admission Dx: No Chronic Renal Failure: Encephalopathy TEREZA SANTOS MD Jan 26, 2021 13:05
[2021-01-26] MEDS ORDERED: IPRA3AMP29 NEB (13:10)
[2021-01-26] MEDS ORDERED: DOCU-153 PO (13:10)
[2021-01-26] MEDS ORDERED: ACET325T21 PO (13:10)
--- NOTE | 2021-01-26 13:12 | SNU/HH DC ---
DISCHARGE WITH HOME HEALTH DISCHARGE INFORMATION: Condition on Discharge: Stable CODE STATUS: Code Status: Full HOME HEALTH: Face to Face: I certify this patient is under my care and that I, or a nurse practitioner or physician's health care legal assistant working with me, had a face to face encounter that meets the physician face to face encounter requirements with this patient on []. Medical Complications: COPD, CVA Senior Care For: Assess Cardiopulm Status, Assess & Educate Safety, Asses s/Skilled Observatio, Medication Management, Pain Management RN For Eval/Treatment: Yes Physical Therapy For: Evalulation/Treatment Occupational Therapy For: Evaluation/Treatment Speech Language Pathology For: Evaluation/Treatment Home Health Aide For: Self-care [facility] [employer]SULTANT For: Community Resources Pt Meets Homebound Status: Limited distance walking, Poor cognition POST DISCHARGE ORDERS: Activity Instructions for Disc: Activity as tolerated, Avoid high altitudes DIET AFTER DISCHARGE: Cardiac CHECKS AFTER DISCHARGE: Checks after discharge: Check blood press - daily FOLLOW-UP: PCP to follow Home Health: pcp one week Follow up with: vascular surgery 4 weeks Follow Up With: neurology 3-4 weeks TREATMENT/EQUIPMENT ORDERS: Adaptive Equipment Issued: Cane Discharge Respiratory Equipmen: Nebulizer CERTIFICATION STATEMENT: Certification Statement: Certification Statement: Based on the above finding, I certify that this patient is confined to the home and needs intermittent intermediate care, physical therapy and/or speech therapy, or continues to need occupational therapy.~ This patient is under my care, and I have initiated the establishment of the plan of care.~ This patient will be followed by myself or a community physician who will periodically review the plan of care. Home Meds Active Scripts Docusate Sodium (DOK) 100 Mg Capsule, 100 MG PO PRN BID PRN for HARD STOOLS for 30 Days, #60 CAP Prov:TEREZA SANTOS MD 01/26/21 Acetaminophen (ACETAMINOPHEN) 325 Mg Tablet, 650 MG PO PRN Q4HRS PRN for TEMP OVER 100.4F OR MILD PAIN for 30 Days, #100 TAB Prov:TEREZA SANTOS MD 01/26/21 Ipratropium/Albuterol Sulfate (DUONEB 0.5-3(2.5) MG/3 ML) 3 Ml Ampul.neb, 3 ML NEB PRN Q4HRS PRN for SHORTNESS OF BREATH for 14 Days, #90 EACH Prov:TEREZA SANTOS MD 01/26/21 Reported Medications Escitalopram Oxalate (ESCITALOPRAM OXALATE) 10 Mg Tablet, 10 MG PO DAILY for ANTI-DEPRESSANT, #30 TAB 0 Refills 01/25/21 Atorvastatin Calcium (ATORVASTATIN CALCIUM) 10 Mg Tablet, 10 MG PO HS for FOR CHOLESTEROL, #30 TAB 0 Refills 01/25/21 Ferrous Sulfate (FERROUS SULFATE) 325 Mg Tablet, 325 MG PO DAILY for supplement, TAB 01/25/21 Potassium Chloride (POTASSIUM CHLORIDE ) 20 Meq Tablet.er, 20 MEQ PO TID for supplement 09/15/18 Rivaroxaban (XARELTO) 20 Mg Tablet, 20 MG PO DAILY for DVT 09/15/18 Indapamide (INDAPAMIDE) 1.25 Mg Tablet, 1.25 MG PO DAILY for diuretic 09/15/18 Felodipine (FELODIPINE ER) 10 Mg Tab.er.24h, 10 MG PO DAILY for htn 09/15/18 Ezetimibe (ZETIA) 10 Mg Tablet, 10 MG PO DAILY for HLD 09/15/18 Anastrozole (ARIMIDEX) 1 Mg Tablet, 1 MG PO DAILY for Breast Cancer 09/15/18 TEREZA SANTOS MD Jan 26, 2021 13:12
--- NOTE | 2021-01-26 13:35 | PDOC ---
PROGRESS NOTES Date of Service DATE: 01/26/21 TIME: 13:31 Assessment Tension type headache She denies any acute lower extremity weakness, she has chronic gait disorder for 10 years Expected left frontal encephalomalacia from the stroke last May, no evidence of new stroke. In particular, there is no lower extremity weakness whatsoever. No new stroke on the MRI Peripheral vascular disease, mainly venous, discussed with vascular surgery. She saw Dr. Rios for this in June 2017 Plan No additional work-up needed Otherwise she can go home later today. Already on Xarelto Follow-up with vascular surgery Follow-up with me as needed Subjective No complaints, wants to go home Objective Vital Signs Date Time Temp Pulse Resp B/P (MAP) Pulse Ox O2 Delivery O2 Flow Rate FiO2 01/26/21 11:05 62 112/61 01/26/21 11:00 98.2 18 100 Room Air 98.2 Intake and Output 01/26/21 07:00 Intake Total 700 ml Output Total 550 ml Balance 150 ml Intake Oral 700 ml Output Urine Total 550 ml # Voids 4 PHYSICAL EXAM Alert. Oriented to time, place and person. Expressive aphasia. PERRL. EOMI. CN: no focal findings. Muscle tone: normal. Muscle strength: 5/5 DTR: 2+ Plantar reflex: Flexor Gait: not examined in bed. Sensory exam: no abnormal findings. No cerebellar signs elicited. Review of Relevant I have reviewed the following items theresa (where applicable) has been applied. Labs Laboratory Tests Test 01/25/21 06:40 01/25/21 21:00 White Blood Count 6.1 x10^3/uL (4.0-11.0) Red Blood Count 4.21 x10^6/uL (3.50-5.40) Hemoglobin 11.5 g/dL (12.0-15.5) Hematocrit 35.2 % (36.0-47.0) Mean Corpuscular Volume 84 fL (79-100) Mean Corpuscular Hemoglobin 27 pg (25-35) Mean Corpuscular Hemoglobin Concent 33 g/dL (31-37) Red Cell Distribution Width 27.8 % (11.5-14.5) Platelet Count 197 x10^3/uL (140-400) Neutrophils (%) (Auto) 64 % (31-73) Lymphocytes (%) (Auto) 23 % (24-48) Monocytes (%) (Auto) 9 % (0-9) Eosinophils (%) (Auto) 4 % (0-3) Basophils (%) (Auto) 0 % (0-3) Neutrophils # (Auto) 3.9 x10^3/uL (1.8-7.7) Lymphocytes # (Auto) 1.4 x10^3/uL (1.0-4.8) Monocytes # (Auto) 0.6 x10^3/uL (0.0-1.1) Eosinophils # (Auto) 0.2 x10^3/uL (0.0-0.7) Basophils # (Auto) 0.0 x10^3/uL (0.0-0.2) Platelet Estimate Adequate (ADEQUATE) Anisocytosis Present Prothrombin Time 15.0 SEC (11.7-14.0) Prothromb Time International Ratio 1.2 (0.8-1.1) Sodium Level 145 mmol/L (136-145) Potassium Level 3.6 mmol/L (3.5-5.1) Chloride Level 107 mmol/L (98-107) Carbon Dioxide Level 31 mmol/L (21-32) Anion Gap 7 (6-14) Blood Urea Nitrogen 15 mg/dL (7-20) Creatinine 0.8 mg/dL (0.6-1.0) Estimated GFR (Cockcroft-Gault) 86.3 Glucose Level 73 mg/dL (70-99) Calcium Level 9.2 mg/dL (8.5-10.1) Magnesium Level 2.0 mg/dL (1.8-2.4) Urine Collection Type Unknown Urine Color Yellow Urine Clarity Clear Urine pH 7.0 (<5.0-8.0) Urine Specific Norman 1.020 (1.000-1.030) Urine Protein Negative mg/dL (NEG-TRACE) Urine Glucose (UA) Negative mg/dL (NEG) Urine Ketones (Stick) Negative mg/dL (NEG) Urine Blood Moderate (NEG) Urine Nitrite Negative (NEG) Urine Bilirubin Negative (NEG) Urine Urobilinogen Dipstick 0.2 mg/dL (0.2 mg/dL) Urine Leukocyte Esterase Small (NEG) Urine RBC 11-20 /HPF (0-2) Urine WBC 1-4 /HPF (0-4) Urine Squamous Epithelial Cells Few /LPF Urine Bacteria 0 /HPF (0-FEW) Laboratory Tests Test 01/25/21 21:00 Urine Collection Type Unknown Urine Color Yellow Urine Clarity Clear Urine pH 7.0 (<5.0-8.0) Urine Specific Norman 1.020 (1.000-1.030) Urine Protein Negative mg/dL (NEG-TRACE) Urine Glucose (UA) Negative mg/dL (NEG) Urine Ketones (Stick) Negative mg/dL (NEG) Urine Blood Moderate (NEG) Urine Nitrite Negative (NEG) Urine Bilirubin Negative (NEG) Urine Urobilinogen Dipstick 0.2 mg/dL (0.2 mg/dL) Urine Leukocyte Esterase Small (NEG) Urine RBC 11-20 /HPF (0-2) Urine WBC 1-4 /HPF (0-4) Urine Squamous Epithelial Cells Few /LPF Urine Bacteria 0 /HPF (0-FEW) Medications Current Medications Sodium Chloride (Normal Saline Flush) 3 ml PRN DAILY PRN IV AFTER MEDS AND BLOOD DRAWS; Start 01/25/21 at 04:45 Anastrozole (Arimidex) 1 mg DAILY PO Last administered on 01/26/21 11:10; Start 01/25/21 at 12:00 Atorvastatin Calcium (Lipitor) 10 mg HS PO Last administered on 01/25/21 23:01; Start 01/25/21 at 21:00 EZETIMIBE (Zetia) 10 mg DAILY PO Last administered on 01/26/21 11:04; Start 01/25/21 at 12:00 Ferrous Sulfate (Feosol) 325 mg DAILY PO Last administered on 01/26/21 11:04; Start 01/25/21 at 12:00 Potassium Chloride (Klor-Con) 20 meq TID PO Last administered on 01/26/21 11:04; Start 01/25/21 at 14:00 Citalopram Hydrobromide (CeleXA) 20 mg DAILY PO Last administered on 01/26/21 11:03; Start 01/25/21 at 12:00 Amlodipine Besylate (Norvasc) 10 mg DAILY PO Last administered on 01/26/21 11:05; Start 01/25/21 at 12:00 Indapamide (Lozol) 1.25 mg DAILY PO Last administered on 3/25/21at 11:10; Start 01/25/21 at 12:00 Rivaroxaban (Xarelto) 20 mg DAILY08 PO Last administered on 01/26/21at 11:04; Start 01/25/21 at 12:00 Sodium Chloride (Normal Saline Flush) 3 ml QSHIFT PRN IV AFTER MEDS AND BLOOD DRAWS; Start 01/25/21 at 13:45; Stop 01/25/21 at 16:14; Status DC Ondansetron HCl (Zofran) 4 mg PRN Q4HRS PRN IV NAUSEA/VOMITING; Start 01/25/21 at 13:45 Acetaminophen (Tylenol) 650 mg PRN Q4HRS PRN PO TEMP OVER 100.4F OR MILD PAIN; Start 01/25/21 at 13:45 Al Hydroxide/Mg Hydroxide (Mylanta Plus Xs) 30 ml PRN DAILY PRN PO HEARTBURN / GAS; Start 01/25/21 at 13:45 Sodium Monofluorophosphate (Fleet Adult) 133 ml PRN DAILY PRN ID CONSTIPATION; Start 01/25/21 at 13:45 Docusate Sodium (Colace) 100 mg PRN BID PRN PO HARD STOOLS; Start 01/25/21 at 13:45 Albuterol/ Ipratropium (Duoneb) 3 ml Q4H NEB ; Start 01/25/21 at 13:45; Stop 01/25/21 at 14:23; Status DC Guaifenesin (Robitussin) 200 mg PRN Q4HRS PRN PO COUGH; Start 01/25/21 at 13:45 Lorazepam (Ativan) 0.5 mg PRN Q4HRS PRN PO ANXIETY / AGITATION; Start 01/25/21 at 13:45 Albuterol/ Ipratropium (Duoneb) 3 ml PRN Q4HRS PRN NEB SHORTNESS OF BREATH; Start 01/26/21 at 13:45 Active Scripts Active Dok (Docusate Sodium) 100 Mg Capsule 100 Mg PO PRN BID PRN 30 Days Acetaminophen 325 Mg Tablet 650 Mg PO PRN Q4HRS PRN 30 Days Duoneb 0.5-3(2.5) Mg/3 Ml (Albuterol/Ipratropium) 3 Ml Ampul.neb 3 Ml NEB PRN Q4HRS PRN 14 Days Reported Escitalopram Oxalate 10 Mg Tablet 10 Mg PO DAILY Atorvastatin Calcium 10 Mg Tablet 10 Mg PO HS Ferrous Sulfate 325 Mg Tablet 325 Mg PO DAILY Potassium Chloride (Potassium Chloride) 20 Meq Tablet.er 20 Meq PO TID Xarelto (Rivaroxaban) 20 Mg Tablet 20 Mg PO DAILY Indapamide 1.25 Mg Tablet 1.25 Mg PO DAILY Felodipine Er (Felodipine) 10 Mg Tab.er.24h 10 Mg PO DAILY Zetia (Ezetimibe) 10 Mg Tablet 10 Mg PO DAILY Arimidex (Anastrozole) 1 Mg Tablet 1 Mg PO DAILY Vitals/I & O Vital Sign - Last 24 Hours 01/25/21 01/25/21 01/25/21 01/25/21 13:45 14:05 19:14 20:00 Temp 98.4 98.3 98.4 98.3 Pulse 60 54 64 Resp 20 20 B/P (MAP) 138/64 (88) 125/59 (81) Pulse Ox 98 100 O2 Delivery Room Air Room Air Room Air 01/25/21 01/26/21 01/26/21 01/26/21 23:01 03:14 07:00 08:00 Temp 98.3 98.1 98.9 98.3 98.1 98.9 Pulse 59 64 63 Resp 18 19 18 B/P (MAP) 156/67 (96) 137/68 (91) 148/70 (96) Pulse Ox 96 100 99 O2 Delivery Room Air Room Air Room Air Room Air 01/26/21 01/26/21 11:00 11:05 Temp 98.2 98.2 Pulse 62 62 Resp 18 B/P (MAP) 112/61 (78) 112/61 Pulse Ox 100 O2 Delivery Room Air Intake and Output 01/25/21 01/25/21 01/26/21 15:00 23:00 07:00 Intake Total 550 ml 150 ml Output Total 300 ml 250 ml Balance -300 ml 300 ml 150 ml Images MRI BRAIN WO Date: 01/25/2021 4:15 PM Indication: Weakness, abnormal head CT (entirely explained by known history of stroke) Comparison: CT 01/24/2021. Technique: Multiplanar multisequence MRI of the brain was performed without intravenous contrast using the standard protocol. Findings: No acute infarct. No acute hemorrhage. The ventricles are normal in size and configuration without hydrocephalus. Mild scattered FLAIR hyperintensities in the subcortical and periventricular deep white matter, a nonspecific finding, most commonly seen with chronic small vessel ischemic disease. Moderate-sized area of left parietal encephalomalacia. The scalp and calvarium are normal. The pituitary and sella are normal. No Chiari malformation. Mild incompletely characterized degenerative spondylosis of the visualized upper cervical spine. The visualized orbits and globes are normal. The visualized paranasal sinuses are clear. The mastoid air cells are clear. Normal flow voids within the vertebral, basilar, and internal carotid arteries indicating patency. IMPRESSION: 1. No acute infarct, acute hemorrhage, mass, or hydrocephalus. 2. Moderate-sized area of left parietal encephalomalacia. 3. Mild chronic small vessel ischemic disease. Justicifation of Admission Dx: Justifications for Admission: Justification of Admission Dx: No Chronic Renal Failure: Encephalopathy LIANG GARDUNO MD Jan 26, 2021 13:35
--- NOTE | 2021-01-26 13:42 | NUR ---
SS following up with discharge planning. SS reviewed pt chart and discussed with pt RN. Pt is currently on room air. PT/OT recommended home independent. Discharge orders received for home with home healthcare. SS met with pt to discuss discharge planning and home healthcare services. Pt declined home healthcare at this time. Pt's RN notified.
[2021-01-26] MEDS ORDERED: IPRATRPIUM/ALBUTEROL 0.5/2.5MG 3 ML NEBU. NEB PRN (13:45)
--- NOTE | 2021-01-26 17:24 | NUR ---
Discharge Note: DEE RAE [facility] Discharge instructions and discharge home medications reviewed with Patient and a copy given. All questions have been answered and understanding verbalized.
== END 2021-01-26 17:28 | disposition still patient (30) ==
LOC: INTOOBSV 01-25 02:59 → 2 SOUTH 01-25 02:59
PROVIDERS: ADMIT Internal Medicine; ATTEND Internal Medicine
DX: I73.9 Peripheral vascular disease, unspecified (principal); G93.89 Other specified disorders of brain; J43.9 Emphysema, unspecified; I12.9 Hypertensive chronic kidney disease with stage 1 through stage 4 chronic kidney disease, or unspecified chronic kidney disease; N18.9 Chronic kidney disease, unspecified; I63.9 Cerebral infarction, unspecified; I69.320 Aphasia following cerebral infarction; I87.2 Venous insufficiency (chronic) (peripheral); M19.90 Unspecified osteoarthritis, unspecified site; G93.40 Encephalopathy, unspecified; F41.9 Anxiety disorder, unspecified; F32.9 Major depressive disorder, single episode, unspecified; G44.209 Tension-type headache, unspecified, not intractable; E78.5 Hyperlipidemia, unspecified; D05.90 Unspecified type of carcinoma in situ of unspecified breast; Z85.3 Personal history of malignant neoplasm of breast; Z79.811 Long term (current) use of aromatase inhibitors; Z51.5 Encounter for palliative care; Z87.891 Personal history of nicotine dependence; Z79.899 Other long term (current) drug therapy
CPT/HCPCS: 36415; 70551; 80048; 81001; 83735; 85025; 85610; 87086; 93925; 97161; 97165; G0378; G0379

== ENCOUNTER 2021-07-31 09:03 | Day surgery (SDC) | payer MEDICARE ==
[~2021-07-31] VITALS: Ht 162.6 cm; Wt 60.0 kg
[~2021-07-31 09:03] MED LIST changes: +ACET325T21 PO; +ASPI325T8 PO; +ATOR10TA60 PO; +DOCU-148 PO; +ESCITALOPRAM OX10 MG PO; +FERR325T14 PO; +HYDROmorphone 2 MG/ML VIAL IVP PRN; +IBUP-1007 PO; +IPRA3AMP29 NEB; +IV RINGERS,LACTATED 1000ML 1,000 ML IV SCH; +MORPHINE SULFATE 2 MG/ML INJ. IVP PRN; +PROCHLORPERAZINE 10 MG/2 ML VIAL. IVP PRN; +ceFAZolin SODIUM IV Push 1 GM VIAL. IVP PRN; +fentaNYL PF VIAL 100 MCG/2 ML VIAL IVP PRN
[2021-07-31] MEDS ORDERED: BUPIVACAINE MPF 0.5% 30 ML VIAL. ONE (09:34)
[2021-07-31] MEDS ORDERED: BUPIVACAINE MPF 0.25% 30 ML VIAL. ONE (09:35)
[2021-07-31] MEDS ORDERED: VANCOMYCIN 1 GM VIAL. ONE (09:35)
[2021-07-31 09:47] VITALS: BP 132/60
--- NOTE | 2021-07-31 09:57 | PDOC1 ---
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 On 07/23/2021 presented to ED at [facility] in [place], [place] after a fall at home. Was found with trimalleolar fracture and has been at home using wheelchair and hopping on walker to transition. She has used a cane for over 10 years more due to an imbalance. She complains of intermittent mild foot cramping and pain and is in a 3-way splint on her right leg. She takes an [id number] medication to relieve this discomfort and prn hydrocodone. She has worn compression hose in the past. She does report that she has been on Xarelto for several years even prior to her CVA she believes this potentially could have been due to a prior DVT. Her aphasia complicates full history taking. She does continue to smoke about 4 to 5 cigarettes/day. She denies any current headache, nausea or vomiting. She denies any shortness of breath or chest pain. Labs pending. Her plan is outpatient surgery and outpatient PT. Past Medical History Cardiovascular: HTN, Other Pulmonary: COPD CENTRAL NERVOUS SYSTEM: CVA Heme/Onc: No pertinent hx Hepatobiliary: No pertinent hx Psych: Anxiety, Depression Musculoskeletal: Osteoarthritis Infectious disease: No pertinent hx Renal/: No pertinent hx Past Surgical History Past Surgical History: Other Family History Family History: Hypertension Social History Smoke: <1 pack per day ALCOHOL: none Drugs: None Current Medications Current Medications Current Medications Fentanyl Citrate (Fentanyl 2ml Vial) 25 mcg PRN Q5MIN PRN IVP MILD PAIN 1-3; Start 07/31/21 at 06:00; Stop 08/01/21 at 05:59 Fentanyl Citrate (Fentanyl 2ml Vial) 50 mcg PRN Q5MIN PRN IVP MODERATE PAIN 4- 6; Start 07/31/21 at 06:00; Stop 08/01/21 at 05:59 Morphine Sulfate (Morphine Sulfate) 1 mg PRN Q10MIN PRN IVP SEVERE PAIN 7-10; Start 07/31/21 at 06:00; Stop 08/01/21 at 05:59 Ringer's Solution 1,000 ml @ 30 mls/hr Q24H IV ; Start 07/31/21 at 06:00; Stop 07/31/21 at 17:59 Hydromorphone HCl (Dilaudid) 0.5 mg PRN Q10MIN PRN IVP SEVERE PAIN 7-10, 2nd C HOICE; Start 07/31/21 at 06:00; Stop 08/01/21 at 05:59 Prochlorperazine Edisylate (Compazine) 5 mg PACU PRN PRN IVP NAUSEA, MRX1; Start 07/31/21 at 06:00; Stop 08/01/21 at 05:59 Cefazolin Sodium (Ancef) 1 gm 1X PREOP PRN IVP PRIOR TO PROCEDURE; Start at 06:00; Stop 07/31/21 at 18:00 Bupivacaine HCl (Sensorcaine Mpf 0.5%) 30 ml STK-MED ONCE .ROUTE ; Start 07/31/21 at 09:34; Stop 07/31/21 at 09:34; Status DC Bupivacaine HCl (Sensorcaine Mpf 0.25%) 30 ml STK-MED ONCE .ROUTE ; Start 07/31/21 at 09:35; Stop 07/31/21 at 09:35; Status DC Vancomycin HCl (Vancomycin) 1 gm STK-MED ONCE .ROUTE ; Start 07/31/21 at 09:35; Stop 07/31/21 at 09:35; Status DC Active Scripts Active Dok (Docusate Sodium) 100 Mg Capsule 100 Mg PO PRN BID PRN 30 Days Acetaminophen 325 Mg Tablet 650 Mg PO PRN Q4HRS PRN 30 Days Reported Ibuprofen 600 Mg Tablet 600 Mg PO PRN Q6HRS PRN Aspirin 325 Mg Tablet 325 Mg PO DAILY Escitalopram Oxalate 10 Mg Tablet 10 Mg PO DAILY Atorvastatin Calcium 10 Mg Tablet 10 Mg PO HS Potassium Chloride (Potassium Chloride) 20 Meq Tablet.er 20 Meq PO TID Xarelto (Rivaroxaban) 20 Mg Tablet 10 Mg PO DAILY Indapamide 1.25 Mg Tablet 1.25 Mg PO DAILY Felodipine Er (Felodipine) 10 Mg Tab.er.24h 10 Mg PO DAILY Zetia (Ezetimibe) 10 Mg Tablet 10 Mg PO DAILY Arimidex (Anastrozole) 1 Mg Tablet 1 Mg PO DAILY Allergies Allergies: Coded Allergies: No Known Drug Allergies (Unverified , 07/28/21) ROS General: No: Chills, Night Sweats, Fatigue, Malaise, Appetite, Other PSYCHOLOGICAL ROS: No: Anxiety, Behavioral Disorder, Concentration difficultie, Decreased libido, Depression, Disorientation, Hallucinations, Hostility, Ir ritablity, Memory difficulties, Mood Swings, Obsessive thoughts, Physical abuse, Sexual abuse, Sleep disturbances, Suicidal ideation, Other Eyes: No Blurry vision, No Decreased vision, No Double vision, No Dry eyes, No Excessive tearing, No Eye Pain, No Itchy Eyes, No Loss of vision, No Photophobia, No Scotomata, No Uses contacts, No Uses glasses, No Other HEENT: No: Heacaches, Visual Changes, Hearing change, Nasal congestion, Nasal discharge, Oral lesions, Sinus pain, Sore Throat, Epistaxis, Sneezing, Snoring, Tinnitus, Vertigo, Vocal changes, Other ALLERGY AND IMMUNOLOGY: No: Hives, Insect Bite Sensitivity, Itchy/Watery Eyes, Nasal Congestion, Post Nasal Drip, Seasonal Allergies, Other Hematological and Lymphatic: No: Bleeding Problems, Blood Clots, Blood Transfusions, Brusing, Night Sweats, Pallor, Swollen Lymph Nodes, Other ENDOCRINE: No: Breast Changes, Galactorrhea, Hair Pattern Changes, Hot Flashes, Malaise/lethargy, Mood Swings, Palpitations, Polydipsia/polyuria, Skin Changes, Temperature Intolerance, Unexpected Weight Changes, Other Breast: No New/Changing Breast Lumps, No Nipple changes, No Nipple discharge, No Other Respiratory: No: Cough, Hemoptysis, Orthopnea, Pleuritic Pain, Shortness of breath, SOB with excertion, Sputum Changes, Stridor, Tachypnea, Wheezing, Other Cardiovascular: No Chest Pain, No Palpitations, No Orthopnea, No Paroxysmal Noc. Dyspnea, No Edema, No Lt Headedness, No Other Gastrointestinal: No Nausea, No Vomiting, No Abdominal Pain, No Diarrhea, No Constipation, No Melena, No Hematochezia, No Other Genitourinary: No Dysuria, No Frequency, No Incontinence, No Hematuria, No Retention, No Discharge, No Urgency, No Pain, No Flank Pain, No Other, No , No , No , No , No , No , No Musculoskeletal: Yes Gait Disturbance, Yes Joint Pain, Yes Joint Swelling, Yes Muscle Pain; No Joint Stiffness, No Muscular Weakness, No Pain In:, No Swelling In:, No Other Neurological: Yes Speech Problems, Yes Weakness; No Behavorial Changes, No Bowel/Bladder ControlChng, No Confusion, No Dizziness, No Gait Disturbance, No Headaches, No Impaired Coord/balance, No Memory Loss, No Numbness/Tingling, No Seizures, No Tremors, No Visual Changes, No Other Skin: No Dry Skin, No Eczema, No Hair Changes, No Lumps, No Mole Changes, No Mottling, No Nail Changes, No Pruritus, No Rash, No Skin Lesion Changes, No Other, No Acne Physical Exam General: Alert, Oriented X3, Cooperative, mild distress HEENT: Atraumatic, PERRLA, EOMI, Mucous membr. moist/pink Lungs: Clear to auscultation, Normal air movement Heart: S1S2, RRR, no thrills, no rubs, no gallops, no murmurs Abdomen: Normal bowel sounds, Soft, No tenderness, No hepatosplenomegaly, No masses Extremities: No clubbing, No cyanosis, No edema, Normal pulses, Other (right lower leg mild swelling, in splint) Skin: No rashes, No breakdown, No significant lesion Neuro: Normal speech, Strength at 5/5 X4 ext, Normal tone, Sensation intact, Cranial nerves 3-12 NL, Reflexes 2+ Psych/Mental Status: Mental status NL, Mood NL Images Images Right tib/fib radiograph: 07/23/2021: 1. Right tibia/fibula 2 views. 2. Right ankle 3 views. An oblique fracture of the distal fibula demonstrates 30 degrees angulation of the distal fracture fragment. A medial malleolar fracture is displaced laterally. A small posterior malleolar fracture fragment is displaced posteriorly. The mortise is disrupted with lateral subluxation and tilt of the talus. No fractures are appreciated more proximally within the tibia/fibula. There is mild to moderate osteoarthritis within the medial compartment of the right knee. Soft tissue swelling is noted about the ankle. There is a small plantar calcaneal spur. Atherosclerotic calcifications are noted. IMPRESSION: 1. Laterally displaced trimalleolar fracture as above. 01/2021: FINDINGS: Right leg demonstrates calcified plaquing without high-grade stenosis, thrombus or large vessel occlusion. The peroneal artery is not visualized may be occluded. There are triphasic waveforms of the femoral and popliteal arteries and monophasic waveforms of the calf arteries. Individual flow velocities are described below. Common femoral artery: 123 cm/s. Profunda femoral artery: 100 cm/s. Superficial femoral artery: 113 cm/s proximal, 73 cm/s mid segment, 118 cm/s distal. Popliteal artery: 64 cm/s. Posterior tibial artery: 20 cm/s proximal, 72 cm/s distal. Peroneal artery: Not visualized. Anterior tibial artery: 39 cm/s. Dorsalis pedis artery: 31 cm/s. Left leg demonstrates calcified plaquing without high-grade stenosis, thrombus or occlusion. There are triphasic waveforms of the femoral and popliteal arteries and calf arteries. Individual flow velocities are described below. Common femoral artery: 146 cm/s. Profunda femoral artery: 44 cm/s. Superficial femoral artery: 89 cm/s proximal, 120 cm/s mid segment, 85 cm/s distal. Popliteal artery: 106 cm/s. Posterior tibial artery: 65 cm/s proximal, 54 cm/s distal. Peroneal artery: 45 cm/s. Anterior tibial artery: 73 cm/s. Dorsalis pedis artery: 52 cm/s. IMPRESSION: 1. The right peroneal artery is not visualized may be excluded. 2. The right calf arteries demonstrate monophasic waveforms indicating peripheral small vessel disease. VTE Prophylaxis Ordered VTE Prophylaxis Devices: Yes VTE Pharmacological Prophylaxi: Yes Assessment/Plan Assessment/Plan A/P: Right ankle trimalleolar fracture - reviewed EKG, no new changes, otherwise no further testing prior to planned ORIF. Patient plans to rehab outpatient. Would restart xarelto 12 hours post-operatively Hypertension - cont home meds, reviewed Hyperlipidemia - cont home meds, reviewed COPD - counseled on smoking cessation for 7 minutes Breast cancer in remission CVA with residual aphasia and left sided weakness on xarelto Peripheral vascular disease and venous insufficiency with varicose veins - previously seen by vascular surgery for RLE pain, no significant large vessel occlusive disease, but likely peripheral disease FEN - NPO PPX - xarelto FULL CODE Dispo - ok for outpatient surgery Justifications for Admission Other Justification MARK FITZGERALD MD Jul 31, 2021 09:57
[2021-07-31] MEDS ORDERED: PROPOFOL 10 MG/ML (20ML) VIAL. IV ONE (10:16)
[2021-07-31] MEDS ORDERED: ONDANSETRON PF 4 MG/2 ML VIAL. ONE (10:16)
[2021-07-31] MEDS ORDERED: DEXAMETHASONE SOD PHOS 4 MG/ML VIAL ONE (10:16)
[2021-07-31] MEDS ORDERED: MIDAZOLAM HCL/PF 2 MG/2 ML VIAL. ONE (10:17)
--- NOTE | 2021-07-31 10:19 | EKG ---
[facility] [address] [place] [address] Test Date: 2021-07-31 Test Time: 10:19:24 Pat Name: DEE RAE Department: Room: Gender: F [employer]: : 1950 Requested By: MARK FITZGERALD Order Number: [id number] Reading MD: Catrachito Rios MD Measurements Intervals [place] Rate: 61 P: -26 IL: 158 QRS: 64 QRSD: 88 T: -107 QT: 422 QTc: 426 Interpretive Statements SINUS RHYTHM PROBABLE LVH POOR R WAVE PROGRESSION NON-SPECIFIC ST/T CHANGES Electronically Signed On 08-01-2021 14:11:47 CDT by Catrachito Rios MD
[2021-07-31] MEDS ORDERED: FELO5TAB4 PO (10:30)
[2021-07-31] MEDS ORDERED: fentaNYL PF VIAL 100 MCG/2 ML VIAL ONE (13:07)
--- NOTE | 2021-07-31 13:23 | PDOC4 ---
OPERATIVE NOTE Date: Date: Jul 31, 2021 Pre-Op Diagnosis: Right trimalleolar ankle fracture displaced Post-Op Diagnosis: Same as above Procedure Performed: Right ankle open reduction and internal fixation with syndesmotic joint stabilization Surgeon: Mona Almaguer DPM Anesthesia Type: General Blood Loss: 5 cc Specimans Obtained: None Findings: Distal spiral fibular fracture, oblique medial malleolar fracture, posterior tibial fracture less than 25% joint involvement. Intraoperative stress test remarked syndesmotic joint instability. Soft bone throughout. Complications: None Operative Note: Under mild sedation, patient was brought into the operating room and placed on an operating table in a supine position. Following a formal timeout, patient's identity, procedure and procedure sites were confirmed. Following IV prophylactic antibiotics, general anesthesia, a well-padded thigh tourniquet was placed to the right lower extremity. Then the right lower extremity was then scrubbed, prepped and draped using standard aseptic techniques. An Esmarch was used to exsanguinate the right foot and ankle and tourniquet was inflated to 250 millimercury. The attention was directed to the right ankle where a standard lateral approach was performed. Great care was taken to identify and retract all the neurovascular bundles including the superficial peroneal nerve. All bleeders were cauterized as necessary. Using sharp and blunt dissection, incision was taken deep to periosteum which was incised. Intraoperatively, we found distal oblique spiral fibula fracture. The hematoma was evacuated and all interposed periosteum was removed from the fracture site. The wound was irrigated with copious saline then. At this time, the fracture was reduced with 2 bone clamps. Using standard AO technique, the fracture was stabilized with 3.5 millimeter screws from A to P. Intraoperative x-ray noted adequate fibular length cheondoism with restored dime sign. Then a standard anatomical fibular plate was placed to the lateral fibula and temporarily affixed with 2 olive wires. Intraoperative x-ray noted adequate position allowing 2 syndesmotic screws and adequate proximal fracture bridging. Then using standard AO techniques, a combination of locking and nonlocking 3.5 millimeter screws were used to affix the plate to the fibula. Again intraoperative x-ray noted adequate hardware pos ition and length. Then, the attention was directed to the medial right ankle where a standard linear incision was performed. Incision was carried deep using sharp and blunt dissection down to level of periosteum which was then incised. Care was taken to retract all the neurovascular bundles and all bleeders were cauterized as needed. Fracture was identified oblique in nature extending from anterior tibia to proximal posterior tibia. There is a mild crush injury/fragmented fragments to the medial posterior cortical wall at the fracture site as well. All interposed periosteum was reflected and resected. The posterior tibial tendon was identified and protected throughout the procedure. Fracture site was reduced with a bone clamp. Next two guidewires for 4.0 mm partially-threaded screws were used to affix and stabilize the fracture fragment. The first guidewire was used to capture the anterior colliculus. Next using standard AO technique, the 4.0 partially-threaded screws were placed over the guidewire. Final imaging were taken to verify position and length of the hardware which appeared adequate and ankle mortise was anatomical. Intraoperative syndesmotic stress test was performed which noted mild diastases across the tib-fib. Then two 3.5 mm cortical screws were placed through the distal lateral fibular plate traversing a total of six cortices to affix and stabilize the syndesmotic joint with the foot held in a slightly adducted and internally rotated position to prevent overtensioning. The hardware position, trajectory and length were confirmed with satisfactory using intraoperative x- ray. Then stress test was noted negative. At this time, the posterior malleolus fracture self reduced adequately without dictation for further hardware fixation. Especially given her softer bone, the drill bit may further displace the small fragment posteriorly causing more complications. The surgical sites were irrigated with copious saline solution. They were then closed in layers with 3-0 Vicryl, 4 Monocryl and 4-0 nylon. Then the surgical sites were anesthetized with 15 cc of 0.25% Marcaine plain. The sites were dressed with Betadine soaked Adaptic, 4 x 4, ABD. The right lower extremity was then immobilized in a modified Briscoe compression splint with ankle held near 90 degrees. Then the tourniquet was deflated and adequate digital perfusion was noted. Patient tolerated the procedure and anesthesia well and then transferred to PACU for continuous recovery. Pending right ankle 3 view x-ray. MONA ALMAGUER DPM Jul 31, 2021 13:22
[2021-07-31] MEDS ORDERED: ACETAMINOPHEN 325 MG TABLET. PO ONE (13:30)
[2021-07-31] MEDS ORDERED: oxyCODONE/APAP 5/325 1 TAB TABLET PO ONE (13:30)
[2021-07-31] MEDS ORDERED: GABAPENTIN 100 MG CAPSULE. PO ONE ×2 (13:30→13:45)
[2021-07-31 13:52] VITALS: BP 97/55
--- NOTE | 2021-08-01 01:38 | RAD ---
EXAM: AP, oblique and lateral views right ankle DATE: 07/31/2021 1:23 PM INDICATION: Reason: post op, pacu / Spl. Instructions: / History: . COMPARISON: No Prior FINDINGS/ IMPRESSION: Overlying cast obscures fine bony detail. 2 medial malleolar screws and distal fibular sideplate and screw device with 2 syndesmotic screws are now seen, in good alignment without definite hardware complication. Ankle mortise is congruent. Electronically signed by: Nikita Lagunas MD (08/01/2021 1:35 AM) EMILIANO
== END 2021-07-31 14:36 | disposition home or self-care (01) ==
LOC: SURG 09:03
PROVIDERS: ATTEND Podiatrist
DX: S82.851A Displaced trimalleolar fracture of right lower leg, initial encounter for closed fracture (principal); I10 Essential (primary) hypertension; E78.00 Pure hypercholesterolemia, unspecified; J43.9 Emphysema, unspecified; M19.90 Unspecified osteoarthritis, unspecified site; F41.9 Anxiety disorder, unspecified; F32.9 Major depressive disorder, single episode, unspecified; F17.210 Nicotine dependence, cigarettes, uncomplicated; Z86.73 Personal history of transient ischemic attack (TIA), and cerebral infarction without residual deficits; Z79.899 Other long term (current) drug therapy; Z79.82 Long term (current) use of aspirin; Z98.890 Other specified postprocedural states; Z82.49 Family history of ischemic heart disease and other diseases of the circulatory system; Z83.3 Family history of diabetes mellitus; X58.XXXA Exposure to other specified factors, initial encounter; Y93.89 Activity, other specified; Y92.89 Other specified places as the place of occurrence of the external cause; Y99.8 Other external cause status
CPT/HCPCS: 27823; 36415; 73610; 82306; 93005; A4930; A6223; A6253; A6402; A6449; C1713; C1769; J0690; J1100; J2250; J2405; J2704; J3010; J3490; 76000; A6455; J3370

== ENCOUNTER 2022-01-14 22:55 | Observation (INO) | payer MEDICARE ==
[~2022-01-14] VITALS: Ht 162.6 cm; Wt 58.0 kg
[~2022-01-14 22:55] MED LIST changes: +CLOP75TA PO; +FELO5TAB4 PO; +FURO40TA4 PO; -HYDROmorphone 2 MG/ML VIAL IVP PRN; -IV RINGERS,LACTATED 1000ML 1,000 ML IV SCH; +LISI10TA16 PO; +METO-239 PO; -MORPHINE SULFATE 2 MG/ML INJ. IVP PRN; -PROCHLORPERAZINE 10 MG/2 ML VIAL. IVP PRN; +RIVA10TA PO; +SPIR25TA PO; -ceFAZolin SODIUM IV Push 1 GM VIAL. IVP PRN; -fentaNYL PF VIAL 100 MCG/2 ML VIAL IVP PRN
[2022-01-14 23:00] VITALS: BP 171/77
[2022-01-14] MEDS ORDERED: ANTI-COAG MONITOR BY PHARMACY. MC PRN (23:15)
[2022-01-14] MEDS ORDERED: HEPARIN for IV BOLUS 10,000 UNIT/10 ML VIAL. IV PRN (23:15)
[2022-01-14] MEDS ORDERED: HEPARIN 25,000UTS/250ML PREMIX 250 ML IV PRN (23:15)
[2022-01-14 23:16] LABS: BASO % 0 % (0-3); EOS % 0 % (0-3); HEMATOCRIT 41.9 % (36.0-47.0); HEMOGLOBIN 13.5 g/dL (12.0-15.5); LYMPH # 0.6 x10^3/uL (1.0-4.8); LYMPH % 7 % (24-48); MEAN CORPUSCULAR HEMOGLOBIN 30 pg (25-35); MEAN CORPUSCULAR HGB CONC 32 g/dL (31-37); MEAN CORPUSCULAR VOLUME 93 fL (79-100); MONO # 0.2 x10^3/uL (0.0-1.1); MONO % 2 % (0-9); NEUT # 8.1 x10^3/uL (1.8-7.7); NEUT % 90 % (31-73); PLATELET COUNT 221 x10^3/uL (140-400); RED BLOOD COUNT 4.52 x10^6/uL (3.50-5.40)
[2022-01-14 23:28] LABS: CALCIUM 9.4 mg/dL (8.5-10.1); CREATININE 1.2 mg/dL (0.6-1.0); GFR 53.9; POTASSIUM 4.2 mmol/L (3.5-5.1)
[2022-01-14 23:29] LABS: MAGNESIUM 1.9 mg/dL (1.8-2.4)
--- NOTE | 2022-01-14 23:30 | NUR ---
Pt admitted to room 104 via gurney from [facility]. On arrival, pt A&ox4, no complaints of pain, SB on monitor, all VSS on 3L NC. Pt does exhibit some shortness of breath while laying in bed. Rapid Covid Neg, pt is vaccinated x2. Heparin drip initiated at [facility] at 2105, per cardiovascular protocol for NSTEMI. Pt very familiar to our service/cardio service, Dr. Jacobson aware of admission- will keep pt on Heparin drip overnight and he will see her in the morning. Dr. Kerr notified of admission arrival, orders received. Critical troponin of 2208 (1950 previously), Dr. Kerr notified. Pt resting peacefully currently, call light in reach.
[2022-01-15] VITALS (11 sets, daily range): BP systolic 122–157; BP diastolic 53–92
[2022-01-15] MEDS: ACETAMINOPHEN 325 MG TABLET. PO PRN ×2 (06:20→22:58)
--- NOTE | 2022-01-15 09:40 | PDOC2 ---
CONSULT Date of Consult Date of Consult DATE: 01/15/22 TIME: 09:40 Reason for Consult Reason for Consult: Elevated troponin level Referring Physician Referring Physician: Dr. Kerr Identification/Chief Complaint Chief Complaint Cough, shortness of breath Source Source: Chart review, Patient History of Present Illness Reason for Visit: 71-year-old female with history of nonischemic cardiomyopathy with LVEF 30% initially presented to [facility] with cough and shortness of breath. Troponin level was elevated prompting transfer to [facility] and cardiology consultation. Patient stated that her cough has been present since June when she was started on lisinopril. She denied any orthopnea/PND, palpitations or syncope. Past Medical History Cardiovascular: CHF, HTN, Other (Nonischemic cardiomyopathy) Pulmonary: COPD CENTRAL NERVOUS SYSTEM: CVA Heme/Onc: No pertinent hx Hepatobiliary: No pertinent hx Psych: Anxiety, Depression Musculoskeletal: Osteoarthritis Infectious disease: No pertinent hx Renal/: No pertinent hx Past Surgical History Past Surgical History: Other Family History Family History: Hypertension Social History ALCOHOL: none Drugs: None Lives: with Family Current Medications Current Medications Current Medications Heparin Sodium/ Dextrose 250 ml @ 7.044 mls/ hr CONT PRN IV PER PROTOCOL Last administered on 01/14/22at 23:47; Start 01/14/22 at 23:15 Heparin Sodium (Porcine) (Heparin Sodium) 1,450 unit PRN Q6HRS PRN IV FOR UFH LEVEL LESS THAN 0.2; Start 01/14/22 at 23:15 Info (Anti-Coagulation Monitoring By Pharmacy) 1 each PRN DAILY PRN MC PER PROTOCOL; Start 01/14/22 at 23:15 Acetaminophen (Tylenol) 650 mg PRN Q6HRS PRN PO MILD PAIN / TEMP > 100.3'F Last administered on 01/15/22at 06:20; Start 01/15/22 at 06:15 Active Scripts Active Furosemide 40 Mg Tablet 40 Mg PO DAILY 60 Days Lisinopril 10 Mg Tablet 10 Mg PO DAILY 60 Days Aldactone (Spironolactone) 25 Mg Tablet 25 Mg PO DAILY 60 Days Metoprolol Succinate ( Xl ) (Metoprolol Succinate) 25 Mg Tab.er.24h 25 Mg PO DAILY 60 Days Clopidogrel (Clopidogrel Bisulfate) 75 Mg Tablet 75 Mg PO DAILYWBKFT 60 Days Xarelto (Rivaroxaban) 10 Mg Tablet 10 Mg PO DAILYWSUP 60 Days Reported Felodipine Er (Felodipine) 5 Mg Tab.er.24h 2.5 Mg PO DAILY Escitalopram Oxalate 10 Mg Tablet 10 Mg PO DAILY Atorvastatin Calcium 10 Mg Tablet 10 Mg PO HS Potassium Chloride (Potassium Chloride) 20 Meq Tablet.er 20 Meq PO TID Indapamide 1.25 Mg Tablet 1.25 Mg PO DAILY Zetia (Ezetimibe) 10 Mg Tablet 10 Mg PO DAILY Arimidex (Anastrozole) 1 Mg Tablet 1 Mg PO DAILY Allergies Allergies: Coded Allergies: No Known Drug Allergies (Unverified , 07/31/21) ROS PSYCHOLOGICAL ROS: No: Hallucinations Eyes: No Loss of vision HEENT: No: Epistaxis Respiratory: YES: Cough, Shortness of breath; No: Hemoptysis Cardiovascular: No Chest Pain Gastrointestinal: No Vomiting Neurological: No Seizures Skin: No Rash Physical Exam General: Alert, No acute distress HEENT: Atraumatic Lungs: Clear to auscultation Heart: Regular rate Abdomen: Soft Extremities: No edema Neuro: Normal speech Psych/Mental Status: Mood NL Vitals VITALS Vital Signs Date Time Temp Pulse Resp B/P (MAP) Pulse Ox O2 Delivery O2 Flow Rate FiO2 01/15/22 09:32 97.7 54 18 136/69 (91) 97 Nasal Cannula 2.0 97.7 Labs Labs Laboratory Tests Test 01/14/22 23:05 01/15/22 03:10 White Blood Count 9.0 x10^3/uL (4.0-11.0) Red Blood Count 4.52 x10^6/uL (3.50-5.40) Hemoglobin 13.5 g/dL (12.0-15.5) Hematocrit 41.9 % (36.0-47.0) Mean Corpuscular Volume 93 fL (79-100) Mean Corpuscular Hemoglobin 30 pg (25-35) Mean Corpuscular Hemoglobin Concent 32 g/dL (31-37) Red Cell Distribution Width 20.0 % (11.5-14.5) Platelet Count 221 x10^3/uL (140-400) Neutrophils (%) (Auto) 90 % (31-73) Lymphocytes (%) (Auto) 7 % (24-48) Monocytes (%) (Auto) 2 % (0-9) Eosinophils (%) (Auto) 0 % (0-3) Basophils (%) (Auto) 0 % (0-3) Neutrophils # (Auto) 8.1 x10^3/uL (1.8-7.7) Lymphocytes # (Auto) 0.6 x10^3/uL (1.0-4.8) Monocytes # (Auto) 0.2 x10^3/uL (0.0-1.1) Eosinophils # (Auto) 0.0 x10^3/uL (0.0-0.7) Basophils # (Auto) 0.0 x10^3/uL (0.0-0.2) Sodium Level 147 mmol/L (136-145) Potassium Level 4.2 mmol/L (3.5-5.1) Chloride Level 107 mmol/L (98-107) Carbon Dioxide Level 29 mmol/L (21-32) Anion Gap 11 (6-14) Blood Urea Nitrogen 15 mg/dL (7-20) Creatinine 1.2 mg/dL (0.6-1.0) Estimated GFR (Cockcroft-Gault) 53.9 Glucose Level 109 mg/dL (70-99) Calcium Level 9.4 mg/dL (8.5-10.1) Magnesium Level 1.9 mg/dL (1.8-2.4) Troponin I High Sensitivity 2209 ng/L (4-50) 1977 ng/L (4-50) Heparin Anti-Xa Act, Unfractionated > 1.10 IU/mL (0.30-0.70) Laboratory Tests Test 01/14/22 23:05 01/15/22 03:10 White Blood Count 9.0 x10^3/uL (4.0-11.0) Red Blood Count 4.52 x10^6/uL (3.50-5.40) Hemoglobin 13.5 g/dL (12.0-15.5) Hematocrit 41.9 % (36.0-47.0) Mean Corpuscular Volume 93 fL (79-100) Mean Corpuscular Hemoglobin 30 pg (25-35) Mean Corpuscular Hemoglobin Concent 32 g/dL (31-37) Red Cell Distribution Width 20.0 % (11.5-14.5) Platelet Count 221 x10^3/uL (140-400) Neutrophils (%) (Auto) 90 % (31-73) Lymphocytes (%) (Auto) 7 % (24-48) Monocytes (%) (Auto) 2 % (0-9) Eosinophils (%) (Auto) 0 % (0-3) Basophils (%) (Auto) 0 % (0-3) Neutrophils # (Auto) 8.1 x10^3/uL (1.8-7.7) Lymphocytes # (Auto) 0.6 x10^3/uL (1.0-4.8) Monocytes # (Auto) 0.2 x10^3/uL (0.0-1.1) Eosinophils # (Auto) 0.0 x10^3/uL (0.0-0.7) Basophils # (Auto) 0.0 x10^3/uL (0.0-0.2) Sodium Level 147 mmol/L (136-145) Potassium Level 4.2 mmol/L (3.5-5.1) Chloride Level 107 mmol/L (98-107) Carbon Dioxide Level 29 mmol/L (21-32) Anion Gap 11 (6-14) Blood Urea Nitrogen 15 mg/dL (7-20) Creatinine 1.2 mg/dL (0.6-1.0) Estimated GFR (Cockcroft-Gault) 53.9 Glucose Level 109 mg/dL (70-99) Calcium Level 9.4 mg/dL (8.5-10.1) Magnesium Level 1.9 mg/dL (1.8-2.4) Troponin I High Sensitivity 2209 ng/L (4-50) 1977 ng/L (4-50) Heparin Anti-Xa Act, Unfractionated > 1.10 IU/mL (0.30-0.70) Assessment/Plan Assessment/Plan 1. Non-STEMI, most probably type II/demand ischemia. EKG without acute changes. Her troponin level is actually lower than her prior admission. 2D echo 10/02/2021 showed LVEF 30% and cardiac catheterization at that time showed 50% stenosis involving LAD and RCA with negative IFR in LAD. Doubt ACS. Stop heparin infusion and continue other medications. 2. Mild acute on chronic systolic heart failure. Better compensated after she received diuretic [place]. Continue diuretics orally. 3. Hypertension: Better controlled since admission. 4. Hyperlipidemia: Continue Lipitor and Zetia 5. 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
--- NOTE | 2022-01-15 09:45 | PDOC1 ---
History and Physical Date of Admission Date of Admission DATE: 01/15/22 TIME: 09:43 Identification/Chief Complaint Chief Complaint Cough, shortness of breath Source Source: Patient History of Present Illness History of Present Illness Patient is a 71-year-old female with past medical history hypertension, systolic CHF, breast cancer, and CVA with residual expressive aphasia, who presents as a transfer from [facility] due to an NSTEMI. Patient initially presented to [facility] for concerns of symptoms of chronic cough and shortness of breath. Initial high-sensitivity troponin was 1951, with repeat 27,065. Chest x-ray showed mild right basilar infiltrates, cardiomegaly with minimal congestion, and emphysema. Patient was placed on a heparin drip and transferred to [facility] where her troponins continue to trend at 2209, and 1976. She states that her cough has been present since June and was not present prior to initiation of her lisinopril. Roughly 2 weeks ago she was switched to Entresto for her systolic CHF. She has been compliant with her daily Xarelto. Echocardiogram on 10/02/2021 showed EF 30% with PAP 28 mmHg. Will admit patient with cardiology consult for further medical management. Past Medical History Cardiovascular: HTN, Other Pulmonary: COPD CENTRAL NERVOUS SYSTEM: CVA Heme/Onc: No pertinent hx Hepatobiliary: No pertinent hx Psych: Anxiety, Depression Musculoskeletal: Osteoarthritis Infectious disease: No pertinent hx Renal/: No pertinent hx Past Surgical History Past Surgical History: Other (BREAST, rigth foot) Family History Family History: Hypertension Social History Smoke: <1 pack per day ALCOHOL: none Drugs: None Current Medications Current Medications Current Medications Heparin Sodium/ Dextrose 250 ml @ 7.044 mls/ hr CONT PRN IV PER PROTOCOL Last administered on 01/14/22at 23:47; Start 01/14/22 at 23:15 Heparin Sodium (Porcine) (Heparin Sodium) 1,450 unit PRN Q6HRS PRN IV FOR UFH LEVEL LESS THAN 0.2; Start 01/14/22 at 23:15 Info (Anti-Coagulation Monitoring By Pharmacy) 1 each PRN DAILY PRN MC PER PROTOCOL; Start 01/14/22 at 23:15 Acetaminophen (Tylenol) 650 mg PRN Q6HRS PRN PO MILD PAIN / TEMP > 100.3'F Last administered on 01/15/22at 06:20; Start 01/15/22 at 06:15 Active Scripts Active Furosemide 40 Mg Tablet 40 Mg PO DAILY 60 Days Lisinopril 10 Mg Tablet 10 Mg PO DAILY 60 Days Aldactone (Spironolactone) 25 Mg Tablet 25 Mg PO DAILY 60 Days Metoprolol Succinate ( Xl ) (Metoprolol Succinate) 25 Mg Tab.er.24h 25 Mg PO DAILY 60 Days Clopidogrel (Clopidogrel Bisulfate) 75 Mg Tablet 75 Mg PO DAILYWBKFT 60 Days Xarelto (Rivaroxaban) 10 Mg Tablet 10 Mg PO DAILYWSUP 60 Days Reported Felodipine Er (Felodipine) 5 Mg Tab.er.24h 2.5 Mg PO DAILY Escitalopram Oxalate 10 Mg Tablet 10 Mg PO DAILY Atorvastatin Calcium 10 Mg Tablet 10 Mg PO HS Potassium Chloride (Potassium Chloride) 20 Meq Tablet.er 20 Meq PO TID Indapamide 1.25 Mg Tablet 1.25 Mg PO DAILY Zetia (Ezetimibe) 10 Mg Tablet 10 Mg PO DAILY Arimidex (Anastrozole) 1 Mg Tablet 1 Mg PO DAILY Allergies Allergies: Coded Allergies: No Known Drug Allergies (Unverified , 07/31/21) ROS Review of System GENERAL: No history of weight change, weakness or fevers. SKIN: No bruising, hair changes or rashes. EYES: No blurred, double or loss of vision. NOSE AND THROAT: No history of nosebleeds, hoarseness or sore throat. HEART: Denies chest pain, denies palpitations. LUNGS: Cough, shortness of breath. Denies hemoptysis or wheezing. GASTROINTESTINAL: Denies nausea, vomiting, abdominal pain. GENITOURINARY: Denies dysuria, frequency, urgency, hematuria. NEUROLOGIC: Denies history of numbness, tingling, tremor or weakness. PSYCHIATRIC: Denies anxiety, denies depression. ENDOCRINE: No history of heat or cold intolerance, polyuria or polydipsia. EXTREMITIES: Denies muscle weakness, joint pain, pain on walking or stiffness. Physical Exam Physical Exam General: Alert, Oriented X3, Cooperative, No acute distress HEENT: PERRLA, EOMI Lungs: Faint crackles. Normal air movement Heart: RRR, systolic murmur. Cardiovascular: S1, S2 Abdomen: Normal bowel sounds, Soft, No tenderness Extremities: No clubbing, No cyanosis Skin: No rashes, No significant lesion Neuro: Expressive aphasia. Normal tone, Sensation intact Psych/Mental Status: Mental status NL, Mood NL Vitals Vitals Vital Signs Date Time Temp Pulse Resp B/P (MAP) Pulse Ox O2 Delivery O2 Flow Rate FiO2 01/15/22 09:32 97.7 54 18 136/69 (91) 97 Nasal Cannula 2.0 97.7 Labs Labs Laboratory Tests Test 01/14/22 23:05 01/15/22 03:10 White Blood Count 9.0 x10^3/uL (4.0-11.0) Red Blood Count 4.52 x10^6/uL (3.50-5.40) Hemoglobin 13.5 g/dL (12.0-15.5) Hematocrit 41.9 % (36.0-47.0) Mean Corpuscular Volume 93 fL (79-100) Mean Corpuscular Hemoglobin 30 pg (25-35) Mean Corpuscular Hemoglobin Concent 32 g/dL (31-37) Red Cell Distribution Width 20.0 % (11.5-14.5) Platelet Count 221 x10^3/uL (140-400) Neutrophils (%) (Auto) 90 % (31-73) Lymphocytes (%) (Auto) 7 % (24-48) Monocytes (%) (Auto) 2 % (0-9) Eosinophils (%) (Auto) 0 % (0-3) Basophils (%) (Auto) 0 % (0-3) Neutrophils # (Auto) 8.1 x10^3/uL (1.8-7.7) Lymphocytes # (Auto) 0.6 x10^3/uL (1.0-4.8) Monocytes # (Auto) 0.2 x10^3/uL (0.0-1.1) Eosinophils # (Auto) 0.0 x10^3/uL (0.0-0.7) Basophils # (Auto) 0.0 x10^3/uL (0.0-0.2) Sodium Level 147 mmol/L (136-145) Potassium Level 4.2 mmol/L (3.5-5.1) Chloride Level 107 mmol/L (98-107) Carbon Dioxide Level 29 mmol/L (21-32) Anion Gap 11 (6-14) Blood Urea Nitrogen 15 mg/dL (7-20) Creatinine 1.2 mg/dL (0.6-1.0) Estimated GFR (Cockcroft-Gault) 53.9 Glucose Level 109 mg/dL (70-99) Calcium Level 9.4 mg/dL (8.5-10.1) Magnesium Level 1.9 mg/dL (1.8-2.4) Troponin I High Sensitivity 2209 ng/L (4-50) 1977 ng/L (4-50) Heparin Anti-Xa Act, Unfractionated > 1.10 IU/mL (0.30-0.70) Laboratory Tests Test 01/14/22 23:05 01/15/22 03:10 White Blood Count 9.0 x10^3/uL (4.0-11.0) Red Blood Count 4.52 x10^6/uL (3.50-5.40) Hemoglobin 13.5 g/dL (12.0-15.5) Hematocrit 41.9 % (36.0-47.0) Mean Corpuscular Volume 93 fL (79-100) Mean Corpuscular Hemoglobin 30 pg (25-35) Mean Corpuscular Hemoglobin Concent 32 g/dL (31-37) Red Cell Distribution Width 20.0 % (11.5-14.5) Platelet Count 221 x10^3/uL (140-400) Neutrophils (%) (Auto) 90 % (31-73) Lymphocytes (%) (Auto) 7 % (24-48) Monocytes (%) (Auto) 2 % (0-9) Eosinophils (%) (Auto) 0 % (0-3) Basophils (%) (Auto) 0 % (0-3) Neutrophils # (Auto) 8.1 x10^3/uL (1.8-7.7) Lymphocytes # (Auto) 0.6 x10^3/uL (1.0-4.8) Monocytes # (Auto) 0.2 x10^3/uL (0.0-1.1) Eosinophils # (Auto) 0.0 x10^3/uL (0.0-0.7) Basophils # (Auto) 0.0 x10^3/uL (0.0-0.2) Sodium Level 147 mmol/L (136-145) Potassium Level 4.2 mmol/L (3.5-5.1) Chloride Level 107 mmol/L (98-107) Carbon Dioxide Level 29 mmol/L (21-32) Anion Gap 11 (6-14) Blood Urea Nitrogen 15 mg/dL (7-20) Creatinine 1.2 mg/dL (0.6-1.0) Estimated GFR (Cockcroft-Gault) 53.9 Glucose Level 109 mg/dL (70-99) Calcium Level 9.4 mg/dL (8.5-10.1) Magnesium Level 1.9 mg/dL (1.8-2.4) Troponin I High Sensitivity 2209 ng/L (4-50) 1977 ng/L (4-50) Heparin Anti-Xa Act, Unfractionated > 1.10 IU/mL (0.30-0.70) Images Images PATIENT: DEE MILLER AACCOUNT: [id number] : 1950 LOCATION: ER AGE: 71 SEX: F EXAM STATUS: REG ER ORD. PHYSICIAN: CHIQUITA PINEDA APRN REASON: sob PROCEDURE: CHEST AP ONLY EXAMINATION: XR CHEST 1V. HISTORY: 71 years Female Reason: sob COMPARISON: December 19, 2021. Findings: There is a mild right basilar infiltrate.. The the heart size is significantly enlarged. There is a minimal vascular congestion. Suggestion of emphysema in the upper lobes. There is no effusion or pneumothorax. The mediastinum and bossman appear unremarkable. Impression: Mild right basilar infiltrates. Cardiomegaly with minimal congestion. Emphysema. Electronically signed by: Francis Russo MD (01/14/2022 8:35 PM) [id number] VTE Prophylaxis Ordered VTE Prophylaxis Devices: No VTE Pharmacological Prophylaxi: Yes Assessment/Plan Assessment/Plan NSTEMI Systolic CHF ODALYS HTN History CVA Plan: We will place consult to cardiology Continue heparin infusion Cough likely chronic in the setting of lisinopril usage. IV fluids Resume home medications, including her home Entresto after seen by cardiology, Xarelto after heparin infusion, and daily home Lasix. FEN - Cardiac diet PPX - Heparin gtt FULL CODE Dispo - inpatient for above. Patient names her surrogate decision-maker is her , Rony Miller. Justifications for Admission Other Justification BERNY BELLAMY MD Jan 15, 2022 09:45
[2022-01-15] MEDS ORDERED: hydrALAZINE 20 MG/ML VIAL. IVP PRN (10:00)
[2022-01-15] MEDS: ANTI-COAG MONITOR BY PHARMACY. MC PRN ×2 (10:24→10:38)
[2022-01-15] MEDS: SPIRONOLACTONE 25 MG TABLET PO SCH (10:55)
[2022-01-15] MEDS: METOPROLOL SUCC 24HR ER 25 MG TAB.ER.24H. PO SCH (10:57)
[2022-01-15] MEDS: CLOPIDOGREL BISULFATE 75 MG TABLET PO SCH (11:03)
[2022-01-15] MEDS: EZETIMIBE 10 MG TABLET. PO SCH (11:03)
[2022-01-15] MEDS: FUROSEMIDE 40 MG TABLET. PO SCH (11:22)
[2022-01-15] MEDS: INDAPAMIDE 2.5 MG TABLET PO SCH (11:23)
--- NOTE | 2022-01-15 13:32 | NUR ---
Wound/Ostomy Care Wound Type/Assessment: Patient seen per wound care consult. See wound assessment. Patient is well known to us from the wound clinic. Patient is being seen for the right medial and right lateral ankle surgical wounds that are from 2020 that have not yet healed. Patient has been having difficulty with dressing changes and attending her scheduled appointments due to her recent hospitalizations lately. Patient does care for these wounds at home as she drives to appointments and does not have HH to assist her. Wounds cleansed, assessed, and measured. Wounds have improved since her orignal visit with us in the wound clinic, considering her recent set backs her wounds are doing well. Treatment Recommendations/Plan: Recommendations for medi-honey gel to be applied to small piece of contact layer and then applied to both open wounds, cover with ABD pad and wrap with kerlix. Change every 3 days. Patient is familiar with this dressing. Dressing applied and patient tolerated well. No other wounds noted. Education provided: Patient educated regarding POC, wound care and dressing changes, and PU prevention. Offloading surface/device: Patient is independent with some assistance as she can be unsteady due to her previous stroke. Patient continually reminded to call for help before getting out of bed. Recommended Referrals/Tests: N/A Discharge Recommendations for dressings: Dressing change instructions left in room as well as medi-honey gel and contact layer. Patient has appointment on Saturday01/23/22 at 3:00 in the wound clinic, unless still inpatient then we will see her inpatient. Patient given appointment card and v/u. Bed lowered and call light in reach.
--- NOTE | 2022-01-15 14:54 | NUR ---
SS following for discharge planning. SS reviewed pt chart and discussed with pt RN. Pt is from home with spouse and is currently on room air. Cardiology and wound care following. Pt transferring to room 665. Discharge plan is currently to home when medically ready for discharge. SS will continue to follow for discharge planning.
[2022-01-15] MEDS ORDERED: RIVAROXABAN 10 MG TABLET. PO SCH (17:00)
[2022-01-15] MEDS ORDERED: ATORVASTATIN CALCIUM 10 MG TABLET. PO SCH (21:00)
[2022-01-16 02:44] VITALS: BP 153/66
[2022-01-16 07:00] VITALS: BP 143/77
[2022-01-16] MEDS: EZETIMIBE 10 MG TABLET. PO SCH (08:35)
[2022-01-16] MEDS: SPIRONOLACTONE 25 MG TABLET PO SCH (08:35)
[2022-01-16] MEDS: CLOPIDOGREL BISULFATE 75 MG TABLET PO SCH (08:35)
[2022-01-16] MEDS: INDAPAMIDE 2.5 MG TABLET PO SCH (08:35)
[2022-01-16] MEDS: FUROSEMIDE 40 MG TABLET. PO SCH (08:35)
[2022-01-16] MEDS: METOPROLOL SUCC 24HR ER 25 MG TAB.ER.24H. PO SCH (08:35)
[2022-01-16] MEDS ORDERED: RIVA20TA2 PO (10:37)
[2022-01-16 11:00] VITALS: BP 144/75
--- NOTE | 2022-01-16 11:22 | SNU/HH DC ---
DISCHARGE WITH HOME HEALTH DISCHARGE INFORMATION: Condition on Discharge: Stable CODE STATUS: Code Status: Full HOME HEALTH: Face to Face: I certify this patient is under my care and that I, or a nurse practitioner or physician's child care center assistant director working with me, had a face to face encounter that meets the physician face to face encounter requirements with this patient on []. Medical Complications: Other (Weakness history of old stroke) [facility] For: Assess & Educate Safety RN For Eval/Treatment: Yes Physical Therapy For: Evalulation/Treatment Occupational Therapy For: Evaluation/Treatment Speech Language Pathology For: Evaluation/Treatment Home Health Aide For: Self-care TOOL AND CUTTER GRINDER For: Community Resources Pt Meets Homebound Status: Poor coordination w/ amb. POST DISCHARGE ORDERS: Activity Instructions for Disc: Activity as tolerated Weight Bearing Status after Di: As tolerated DIET AFTER DISCHARGE: Cardiac Wound/Incision Care: Change dressing CHECKS AFTER DISCHARGE: Checks after discharge: Check blood press - daily, Check your Temp as needed TREATMENT/EQUIPMENT ORDERS: Adaptive Equipment Issued: Cane Discharge Respiratory Equipmen: Nebulizer CERTIFICATION STATEMENT: Certification Statement: Certification Statement: Based on the above finding, I certify that this patient is confined to the home and needs intermittent [facility] care, physical therapy and/or speech therapy, or continues to need occupational therapy.~ This patient is under my care, and I have initiated the establishment of the plan of care.~ This patient will be followed by myself or a community physician who will periodically review the plan of care. Home Meds Active Scripts Furosemide (FUROSEMIDE) 40 Mg Tablet, 40 MG PO DAILY for hf for 60 Days, #60 TAB Prov:MARK LEARY MD 10/04/21 Lisinopril (LISINOPRIL) 10 Mg Tablet, 10 MG PO DAILY for htn for 60 Days, #60 TAB Prov:MARK LEARY MD 10/04/21 Spironolactone (ALDACTONE) 25 Mg Tablet, 25 MG PO DAILY for hf for 60 Days, #60 TAB Prov:MARK LEARY MD 10/04/21 Metoprolol Succinate (METOPROLOL SUCCINATE ( XL )) 25 Mg Tab.er.24h, 25 MG PO DAILY for htn cad for 60 Days, #60 TAB.SR Prov:MARK LEARY MD 10/04/21 Clopidogrel Bisulfate (CLOPIDOGREL) 75 Mg Tablet, 75 MG PO DAILYWBKFT for cad for 60 Days, #60 TAB Prov:MARK LEARY MD 10/04/21 Reported Medications Rivaroxaban (XARELTO) 20 Mg Tablet, 20 MG PO DAILY, TAB 01/16/22 Felodipine (FELODIPINE ER) 5 Mg Tab.er.24h, 2.5 MG PO daily for blood pressure , TAB.SR 07/31/21 Escitalopram Oxalate (ESCITALOPRAM OXALATE) 10 Mg Tablet, 10 MG PO DAILY for ANTI-DEPRESSANT, #30 TAB 0 Refills 01/25/21 Atorvastatin Calcium (ATORVASTATIN CALCIUM) 10 Mg Tablet, 10 MG PO HS for FOR CHOLESTEROL, #30 TAB 0 Refills 01/25/21 Potassium Chloride (POTASSIUM CHLORIDE ) 20 Meq Tablet.er, 20 MEQ PO TID for supplement 09/15/18 Indapamide (INDAPAMIDE) 1.25 Mg Tablet, 1.25 MG PO DAILY for diuretic 09/15/18 Ezetimibe (ZETIA) 10 Mg Tablet, 10 MG PO DAILY for HLD 09/15/18 Anastrozole (ARIMIDEX) 1 Mg Tablet, 1 MG PO DAILY for Breast Cancer 09/15/18 Discontinued Scripts Rivaroxaban (XARELTO) 10 Mg Tablet, 10 MG PO DAILYWSUP for hf for 60 Days, #60 TAB Prov:MARK LEARY MD 10/04/21 LUCITA VALENCIA III DO Jan 16, 2022 11:22
--- NOTE | 2022-01-16 12:02 | NUR ---
SS following up with discharge planning. SS reviewed pt chart and discussed with pt RN. Pt is currently on room air. Cardiology following. Discharge orders received for home with home healthcare. SS met with pt to discuss discharge planning and home healthcare. Pt declining home healthcare at this time. Pt's RN notified.
--- NOTE | 2022-01-16 12:24 | DS ---
DATE OF DISCHARGE: 01/16/2022 ADMISSION DIAGNOSES: Non-ST elevated acute myocardial infarction, acute on chronic systolic and diastolic heart failure, acute kidney injury, hypertension, history of stroke. DISCHARGE DIAGNOSES: Resolving non-ST elevated acute myocardial infarction, likely secondary to demand ischemia; history of hypertension; chronic obstructive pulmonary disease; previous stroke; expressive aphasia; anxiety; depression; osteoarthritis. CONSULTS: Cardiology. PROCEDURES: None. HOSPITAL COURSE: The patient is a pleasant, middle-aged female who presented with non-ST elevated acute myocardial infarction. She was transferred from [facility]. We consulted Cardiology. No procedures had to be performed. It was felt this was secondary to demand ischemia. Today, I saw and examined her. She is doing well and wants to go home. We plan to discharge. DISPOSITION: Home. ACTIVITY: As tolerated. DIET: Low sodium. DISCHARGE MEDICATIONS: Please see the MRAD. TOTAL TIME: 32 minutes. KARYNA/TALI DR: Katey TID: [id number]
--- NOTE | 2022-01-16 13:31 | PDOC ---
CAMERON HANSEN OFFICE NURSE PRACTITIONER 01/16/22 1331: CARDIO Progress Notes Date and Time Date of Service 01/16/2022 Time of Evaluation 1310 Subjective Subjective: No Chest Pain, No shortness of breath, No Palpitations Vitals Vitals Vital Signs Date Time Temp Pulse Resp B/P (MAP) Pulse Ox O2 Delivery O2 Flow Rate FiO2 01/16/22 11:00 97.8 55 24 144/75 (98) 98 Nasal Cannula 97.8 01/16/22 09:32 2.0 Weight Weight [ ] Input and Output Intake and Output Intake and Output 01/16/22 07:00 Intake Total 1100 ml Output Total 650 ml Balance 450 ml Intake Oral 1100 ml Output Urine Total 650 ml # Voids 1 Physical Exam HEENT: Neck Supple W Full Motion Chest: Symmetric LUNGS: Clear to Auscultation Heart: S1S2, RRR (SR) Abdomen: Soft N/T Extremities: No Calf Tenderness Neurology: alert, oriented, follow commands Assessment Assessment 1. Non-STEMI, most probably type II/demand ischemia. EKG without acute changes. Her troponin level is actually lower than her prior admission. 2D echo 10/02/2021 showed LVEF 30% and cardiac catheterization at that time showed 50% stenosis involving LAD and RCA with negative IFR in LAD. Doubt ACS. Continue secondary prevention. Continue plavix. Follow up with [facility] cardiology 2. Mild acute on chronic systolic heart failure. Compensated. Continue diuretics orally. 3. Hypertension: controlled 4. Hyperlipidemia: Continue Lipitor and Zetia 5. 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 Agree with JOURNEYMAN PIPE FITTER's assessment and plan. Non-STEMI most likely demand ischemia. Recent cardiac catheterization results noted above. Mild acute on chronic systolic heart failure better compensated. Continue current medical regimen follow-up with primary safety [facility]. CAMERON HANSEN OFFICE NURSE PRACTITIONER Jan 16, 2022 13:31 NAVI MURPHY MD Jan 17, 2022 07:34
--- NOTE | 2022-01-16 13:56 | NUR ---
PIV ET TELE DISCONTINUED. PT DRESSED INDEPENDENTLY. DISCUSSED DISCHARGE DIRECTIONS AND ANSWERED QUESTIONS TO PT SATISFACTION. PLAN IS TO FOLLOW UP WITH PCP, PT MENTIONED FEELING LIKE HER "BOTTLED UP EMOTIONS" MAY HAVE CONTRIBUTED TO HER FEELING OF CHEST PAIN. SPOUSE PICKING HER UP IN PRIVATE VEHICLE, WHEEL CHAIR TO FRONT ENTRANCE FOR DISCHARGE.
[2022-01-16] MEDS ORDERED: RIVAROXABAN 10 MG TABLET. PO SCH (17:00)
[2022-01-16] MEDS ORDERED: ATORVASTATIN CALCIUM 20 MG TABLET PO SCH (21:00)
== END 2022-01-16 13:50 | disposition home or self-care (01) ==
LOC: INTOOBSV 22:55 → 1 WEST ICU 22:55 → 6 SOUTH 01-15 15:08
PROVIDERS: ADMIT Student in an Organized Health Care Education/Training Program; ATTEND Student in an Organized Health Care Education/Training Program
DX: I21.4 Non-ST elevation (NSTEMI) myocardial infarction (principal); N17.9 Acute kidney failure, unspecified; I13.0 Hypertensive heart and chronic kidney disease with heart failure and stage 1 through stage 4 chronic kidney disease, or unspecified chronic kidney disease; I50.43 Acute on chronic combined systolic (congestive) and diastolic (congestive) heart failure; N18.9 Chronic kidney disease, unspecified; E78.5 Hyperlipidemia, unspecified; G93.40 Encephalopathy, unspecified; I42.8 Other cardiomyopathies; J43.9 Emphysema, unspecified; M19.90 Unspecified osteoarthritis, unspecified site; F17.210 Nicotine dependence, cigarettes, uncomplicated; F41.9 Anxiety disorder, unspecified; F32.9 Major depressive disorder, single episode, unspecified; Z79.01 Long term (current) use of anticoagulants; Z79.02 Long term (current) use of antithrombotics/antiplatelets; Z86.711 Personal history of pulmonary embolism; Z85.3 Personal history of malignant neoplasm of breast; Z86.718 Personal history of other venous thrombosis and embolism; Z86.73 Personal history of transient ischemic attack (TIA), and cerebral infarction without residual deficits
CPT/HCPCS: 36415; 80048; 83735; 84484; 85025; 85520; 96365; 96366; G0378; G0379; J1644

== ENCOUNTER → 2022-01-23 | Outpatient (CLI) | payer MEDICARE ==
[2022-01-16 11:00] VITALS: BP 144/75
== END ==
LOC: SPEC 06:28
PROVIDERS: ATTEND Podiatrist
DX: Z47.89 Encounter for other orthopedic aftercare (principal); T81.31XD Disruption of external operation (surgical) wound, not elsewhere classified, subsequent encounter
CPT/HCPCS: 87075; 87077; 87186

== ENCOUNTER → 2022-03-12 | Outpatient (CLI) | payer MEDICARE | LOC: SPEC 12:21 | PROVIDERS: ATTEND Podiatrist | DX: T81.89XD Other complications of procedures, not elsewhere classified, subsequent encounter (principal) | CPT/HCPCS: 87075 ==